=== PATIENT | male | born 1935 | race Caucasian/White ===

== ENCOUNTER 2023-11-14 15:00 | Inpatient (IN) | payer MEDICARE, SELFPAY ==
[2023-11-14] VITALS (41 sets, daily range): BP systolic 99–128; BP diastolic 52–89; PULSE 94–110; RESP 20–41; TEMP 36.9–37; O2SAT 91–96; BMI 25.7; BMI 42.3
--- NOTE | 2023-11-14 15:04 | ECG_ITS ---
The [facility] Test Date: 2023-11-14 Pat Name: KALINA NOWAK Department: Room: - Gender: Male General Technician: : 1935 Requested By: Order Number: [id number] Reading MD: DONNA CABELLO Measurements Intervals [place] Rate: 105 P: 30 PA: 108 QRS: -9 QRSD: 92 T: -1 QT: 324 QTc: 385 Interpretive Statements 1120 Sinus tachycardia [address]/T wave changes, can't exclude lateral ischemia 5233 Voltage criteria for LVH 9150 abnormal ECG No previous ECG available for comparison Electronically Signed On 11-14-2023 20:20:03 EST by DONNA CABELLO
--- NOTE | 2023-11-14 15:04 | XR_ITS ---
The [address] [address] Patient Name: KALINA NOWAK MRN: [id number] date: 1935 Sex: M Assigned Patient Location: ED.MAIN Current Patient Location: ED.MAIN Accession/Order Number: [id number] Exam Date: 11/14/2023 15:30 Report Date: 11/14/2023 15:50 At the request of: MARYSE LARSEN Procedure: XR chest 1V EXAM: XR chest 1V HISTORY: Weakness COMPARISON: None. TECHNIQUE: Chest X-ray AP, 1 view FINDINGS: Support devices: None. Lungs/pleura: No pneumothorax. Retrocardiac opacity and left costophrenic angle blunting, likely representing small left pleural effusion and left lower lobe atelectasis and/or pneumonia. Heart and mediastinum: Normal contours. Bones: No acute abnormality identified. XR/XR chest 1V Impression: small left pleural effusion and left lower lobe atelectasis and/or pneumonia. Electronically authenticated by: BRETT GUIDO Date: 11/14/2023 15:50
--- NOTE | 2023-11-14 15:05 | CT_ITS ---
The [address] [address] Patient Name: KALINA NOWAK MRN: [id number] date: 1935 Sex: M Assigned Patient Location: ER Current Patient Location: ER Accession/Order Number: [id number] Exam Date: 11/14/2023 16:08 Report Date: 11/14/2023 16:33 At the request of: MARYSE LARSEN Procedure: CT head/brain wo con EXAM: CT head/brain wo con HISTORY: Weakness, alteredf COMPARISON: None. TECHNIQUE: Axial CT images were obtained of the head without intravenous contrast. Multiplanar reconstructions were performed. FINDINGS: No acute intracranial hemorrhage. No acute loss of sinclair/white differentiation. 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 The ventricles and sulci are normal in appearance. The osseous structures are unremarkable. A soft tissue abnormality is present at the left apical scalp region, possibly representing an ulcerated lesion. The paranasal sinuses are clear. There is an effusion in the right mastoid air cells. CT/CT head/brain wo con IMPRESSION: 1. No acute intracranial abnormality. 2. 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 3. Soft tissue abnormality present at the left apical scalp region, possibly representing an ulcerated lesion or laceration. Clinical correlation is necessary. 4. Right mastoid effusion. Electronically authenticated by: BRITTANIE CHRISTINE Date: 11/14/2023 16:33
--- NOTE | 2023-11-14 15:06 | ED_ITS ---
HPI - General Adult General Chief complaint: Altered Mental Status Stated complaint: WEAKNESS Time Seen by Provider: 11/14/23 15:04 History of Present Illness HPI narrative: Patient is an 88-year-old male who presents to the emergency department by ambulance for weakness and altered mental status over the last several days. Patient apparently lives at home alone and his children checked on him and called 911 as he seemed confused. Patient arrives to the emergency department ANO x 1. EMS noted a fever. History is otherwise limited as the patient is confused and hard of hearing. He denies any pain, he denies that he has been sick or had any cough or congestion. Patient denies any vomiting. He is noted to have a large eroded lesion to the top left scalp which EMS states family reported is a birthmark . Related Data Allergies Allergy/AdvReac Type Severity Reaction Status Date / Time Unable to Assess Allergy Verified 11/14/23 15:18 Review of Systems ROS Constitutional Denies: fever or chills Ears, nose, mouth, and throat Denies: throat pain or nasal congestion Cardiovascular Denies: chest pain Respiratory Denies: shortness of breath or cough Gastrointestinal Denies: nausea or vomiting Musculoskeletal Denies: back pain Integumentary/Breast Denies: rash Neurological Denies: headache Hematologic/Lymphatic Denies: easy bruising or easy bleeding Exam Narrative Exam Narrative: Gen.: Awake, alert, in no distress Head: Normocephalic, atraumatic; 5 cm eroded lesion noted to the left parietal scalp that extends into the dermis with no active bleeding or drainage, Edges of the lesion appear black and necrotic ENT: Moist mucous membranes Respiratory: No respiratory distress, lungs clear bilaterally Cardio: Regular rate and rhythm Gastrointestinal: Abdomen is soft, nondistended and nontender to palpation Extremities: Moves extremities equally, no injuries noted Psych: Normal mood and affect Neuro:Alert and oriented To self Skin: Warm, dry, intact Constitutional Vital Signs, click to edit/add: Last Vital Signs Temp 98.5 F 11/14/23 15:11 Pulse 96 H 11/14/23 18:10 Resp 24 11/14/23 15:11 BP 127/52 11/14/23 18:01 Pulse Ox 96 11/14/23 16:30 O2 Del Method Room Air 11/14/23 15:11 O2 Flow Rate 2 11/14/23 15:10 Course Vital Signs Vital signs: Vital Signs Pulse Rate 103 H 11/14/23 15:06 Respiratory Rate 39 H 11/14/23 15:06 Temperature 98.5 F 11/14/23 15:11 Pulse Rate 96 H 11/14/23 18:10 Respiratory Rate 24 11/14/23 15:11 Blood Pressure 127/52 11/14/23 18:01 Pulse Oximetry 96 11/14/23 16:30 Oxygen Delivery Method Room Air 11/14/23 15:11 Oxygen Delivery Flow Rate 2 11/14/23 15:10 Medical Decision Making MDM Narrative Medical decision making narrative: No evidence of wound infection to the lesion on the scalp, family is confident that this has been like this for many years and is not different or worse, I do suspect that this may be a basal versus squamous cell versus melanoma and may need a biopsy later. There is no evidence of acute infection. Patient is alert and oriented to self, he rested comfortably in the emergency department with stable vital signs. He has no EKG changes, he is noted to have elevated white blood cell count, mild renal insufficiency, elevated lactic acid and elevated troponin. Repeat elevated troponin is stable and lactic acid has improved after IV fluids. I discussed this with Dr. Sanchez for [facility] cardiology Who stated that the patient is appropriate for this facility, he will be treated for community-acquired pneumonia with azithromycin, Rocephin and admitted to this facility to hospitalist service for further evaluation and treatment. Stable at time of admission on reevaluation by attending physician. Family at bedside is in agreement with treatment plan Medical Records Medical records reviewed: Yes I reviewed the patient's medical records Lab Data Lab results reviewed: Yes I reviewed the patient's lab results Labs: Lab Results 11/14/23 11/14/23 11/14/23 Range/Units 15:07 15:18 15:46 WBC 18.4 H (4.0-11.0) 10^3/uL RBC 5.63 (4.70-6.10) 10^6/uL Hgb 14.7 (14.0-18.0) g/dL Hct 46.2 (42.0-54.0) % MCV 82.1 (80.0-94.0) fL MCH 26.1 (25.9-34.0) pg MCHC 31.8 (29.9-35.2) g/dL RDW 15.7 H (11.0-15.0) % Plt Count 219 (150-450) 10^3/uL MPV 11.4 (9.5-13.5) fL Neut % (Auto) 87.7 H (43.0-75.0) % Lymph % (Auto) 5.3 L (20.5-60.0) % Schleicher % (Auto) 6.1 (1.7-12.0) % Eos % (Auto) 0.0 L (0.9-7.0) % Baso % (Auto) 0.2 (0.2-2.0) % Neut # (Auto) 16.2 H (1.4-6.5) 10^3/uL Lymph # (Auto) 1.0 L (1.2-3.8) 10^3/uL Schleicher # (Auto) 1.1 H (0.3-0.8) 10^3/uL Eos # (Auto) 0.0 (0.0-0.7) 10^3/uL Baso # (Auto) 0.0 (0.0-0.1) 10^3/uL Abs Immat Gran (auto) 0.12 H (0.00-0.03) 10^3/uL Imm/Tot Granulo (auto) 0.7 H (0.0-0.5) % PT 12.1 H (9.0-11.6) sec INR 1.15 VBG pH 7.422 (7.330-7.430) VBG pCO2 27.5 L (40.0-52.0) mmHg Sodium 139 (136-145) mmol/L Potassium 4.0 (3.5-5.1) mmol/L Chloride 104 (98-107) mmol/L Carbon Dioxide 19.9 L (21.0-32.0) mmol/L Anion Gap 19.1 BUN 35.0 H (7.0-18.0) mg/dL Creatinine 1.65 H (0.70-1.30) mg/dL Est GFR ( Amer) 48 L (>=60) Est GFR (Non-Af Amer) 40 L (>=60) BUN/Creatinine Ratio 21.2 Glucose 238 H (74-106) mg/dL Lactate 2.8 H* (0.4-2.0) mmol/L Calcium 9.2 (8.5-10.1) mg/dL Magnesium 2.0 (1.8-2.4) mg/dL Total Bilirubin 0.8 (0.2-1.0) mg/dL AST 28 (15-37) U/L ALT 27 (16-63) U/L Alkaline Phosphatase 78 (46-116) U/L Troponin I High Sens 229.5 H* (4.0-76.1) pg/mL Total Protein 8.2 (6.4-8.2) g/dL Albumin 3.3 L (3.4-5.0) g/dL Globulin 4.9 g/dL Albumin/Globulin Ratio 0.7 TSH 0.888 (0.358-3.740) uIU/mL Urine Color (YELLOW) Urine Clarity (CLEAR) Urine pH (5.0-9.0) Ur Specific [place] (1.005-1.025) Urine Protein (NEG/TRACE) mg/dL Urine Glucose (UA) (NEGATIVE) mg/dL Urine Ketones (NEGATIVE) mg/dL Urine Occult Blood (NEGATIVE) Urine Nitrite (NEGATIVE) Urine Bilirubin (NEGATIVE) Urine Urobilinogen (0.2-1.0) EU/dL Ur Leukocyte Esterase (NEGATIVE) Urine RBC (0-2) #/HPF Urine WBC (NONE SEEN) #/HPF Ur Squamous Epith Cells (NONE/RARE) #/LPF Urine Crystals (None Seen) #/HPF Urine Bacteria (NONE SEEN) #/HPF Urine Casts (NONE SEEN) #/LPF Hyaline Casts Urine Mucus (NONE SEEN) Ur Culture Indicated? Adenovirus (PCR) Not detected (NOT DETECTE) C. pneumoniae DNA (PCR) Not detected (NOT DETECTE) Coronavirus Type OC43 Not detected (NOT DETECTE) Coronavirus Type HKU1 Not detected (NOT DETECTE) Coronavirus Type 229E Not detected (NOT DETECTE) Coronavirus Type NL63 Not detected (NOT DETECTE) Human Metapneumovir PCR Not detected (NOT DETECTE) M. pneumoniae (PCR) Not detected (NOT DETECTE) Parainfluenza PCR Not detected (NOT DETECTE) Parainfluenza 2 (PCR) Not detected (NOT DETECTE) Parainfluenza 3 (PCR) Not detected (NOT DETECTE) Parainfluenza 4 (PCR) Not detected (NOT DETECTE) RSV (RT-PCR) Not detected (NOT DETECTE) Entero/Rhino (PCR) Not detected (NOT DETECTE) SARS-CoV-2 (PCR) Not detected (NOT DETECTE) Bordetella pertussis (PCR) Not detected (NOT DETECTE) B parapertussis DNA PCR Not detected (NOT DETECTE) Influenza Type A (PCR) Not detected (NOT DETECTE) Influenza Type B (PCR) Not detected (NOT DETECTE) 11/14/23 11/14/23 Range/Units 16:46 16:50 WBC (4.0-11.0) 10^3/uL RBC (4.70-6.10) 10^6/uL Hgb (14.0-18.0) g/dL Hct (42.0-54.0) % MCV (80.0-94.0) fL MCH (25.9-34.0) pg MCHC (29.9-35.2) g/dL RDW (11.0-15.0) % Plt Count (150-450) 10^3/uL MPV (9.5-13.5) fL Neut % (Auto) (43.0-75.0) % Lymph % (Auto) (20.5-60.0) % Schleicher % (Auto) (1.7-12.0) % Eos % (Auto) (0.9-7.0) % Baso % (Auto) (0.2-2.0) % Neut # (Auto) (1.4-6.5) 10^3/uL Lymph # (Auto) (1.2-3.8) 10^3/uL Schleicher # (Auto) (0.3-0.8) 10^3/uL Eos # (Auto) (0.0-0.7) 10^3/uL Baso # (Auto) (0.0-0.1) 10^3/uL Abs Immat Gran (auto) (0.00-0.03) 10^3/uL Imm/Tot Granulo (auto) (0.0-0.5) % PT (9.0-11.6) sec INR VBG pH (7.330-7.430) VBG pCO2 (40.0-52.0) mmHg Sodium (136-145) mmol/L Potassium (3.5-5.1) mmol/L Chloride (98-107) mmol/L Carbon Dioxide (21.0-32.0) mmol/L Anion Gap BUN (7.0-18.0) mg/dL Creatinine (0.70-1.30) mg/dL Est GFR ( Amer) (>=60) Est GFR (Non-Af Amer) (>=60) BUN/Creatinine Ratio Glucose (74-106) mg/dL Lactate 2.5 H* (0.4-2.0) mmol/L Calcium (8.5-10.1) mg/dL Magnesium (1.8-2.4) mg/dL Total Bilirubin (0.2-1.0) mg/dL AST (15-37) U/L ALT (16-63) U/L Alkaline Phosphatase (46-116) U/L Troponin I High Sens 232.1 H* (4.0-76.1) pg/mL Total Protein (6.4-8.2) g/dL Albumin (3.4-5.0) g/dL Globulin g/dL Albumin/Globulin Ratio TSH (0.358-3.740) uIU/mL Urine Color Yellow (YELLOW) Urine Clarity Clear (CLEAR) Urine pH 5.5 (5.0-9.0) Ur Specific [place] 1.020 (1.005-1.025) Urine Protein 30 A (NEG/TRACE) mg/dL Urine Glucose (UA) >=1000 A (NEGATIVE) mg/dL Urine Ketones 15 A (NEGATIVE) mg/dL Urine Occult Blood Small A (NEGATIVE) Urine Nitrite Negative (NEGATIVE) Urine Bilirubin Negative (NEGATIVE) Urine Urobilinogen 0.2 (0.2-1.0) EU/dL Ur Leukocyte Esterase Negative (NEGATIVE) Urine RBC 2-5 A (0-2) #/HPF Urine WBC 0-2 A (NONE SEEN) #/HPF Ur Squamous Epith Cells Rare (NONE/RARE) #/LPF Urine Crystals None seen (None Seen) #/HPF Urine Bacteria Trace A (NONE SEEN) #/HPF Urine Casts Seen A (NONE SEEN) #/LPF Hyaline Casts Rare Urine Mucus Trace A (NONE SEEN) Ur Culture Indicated? No Adenovirus (PCR) (NOT DETECTE) C. pneumoniae DNA (PCR) (NOT DETECTE) Coronavirus Type OC43 (NOT DETECTE) Coronavirus Type HKU1 (NOT DETECTE) Coronavirus Type 229E (NOT DETECTE) Coronavirus Type NL63 (NOT DETECTE) Human Metapneumovir PCR (NOT DETECTE) M. pneumoniae (PCR) (NOT DETECTE) Parainfluenza PCR (NOT DETECTE) Parainfluenza 2 (PCR) (NOT DETECTE) Parainfluenza 3 (PCR) (NOT DETECTE) Parainfluenza 4 (PCR) (NOT DETECTE) RSV (RT-PCR) (NOT DETECTE) Entero/Rhino (PCR) (NOT DETECTE) SARS-CoV-2 (PCR) (NOT DETECTE) Bordetella pertussis (PCR) (NOT DETECTE) B parapertussis DNA PCR (NOT DETECTE) Influenza Type A (PCR) (NOT DETECTE) Influenza Type B (PCR) (NOT DETECTE) Imaging Data Chest x-ray: Attestation: I have reviewed the pertinent imaging results. Radiologist's impression: ITS Impressions Chest X-Ray 11/14/23 15:04 Impression: small left pleural effusion and left lower lobe atelectasis and/or pneumonia. Electronically authenticated by: BRETT GUIDO Date: 11/14/2023 15:[address] 11/14/23 15:05 IMPRESSION: 1. No acute intracranial abnormality. 2. 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 3. Soft tissue abnormality present at the left apical scalp region, possibly representing an ulcerated lesion or laceration. Clinical correlation is necessary. 4. Right mastoid effusion. Electronically authenticated by: BRITTANIE CHRISTINE Date: 11/14/2023 16:33 ECG Data Attestation: I personally reviewed and interpreted this ECG as follows: (Sinus tachycardia at a rate of 105, no acute ST elevation. Mild to moderate ST depression with no ectopy. EKG reviewed by attending physician) Discharge Plan Discharge Chief Complaint: Altered Mental Status Clinical Impression: Elevated troponin, Sepsis, Altered mental status, Pneumonia Time of Disposition Decision: 18:41
[2023-11-14 15:20] LABS: Basophils Percent Auto 0.2 % (0.2-2.0); Hematocrit 46.2 % (42.0-54.0); Hemoglobin 14.7 g/dL (14.0-18.0); Immature Granulocytes Abs Auto 0.12 10^3/uL (0.00-0.03); Immature Granulocytes Pct Auto 0.7 % (0.0-0.5); Lymphocytes Percent Auto 5.3 % (20.5-60.0); Mean Corpuscular HGB Conc 31.8 g/dL (29.9-35.2); Mean Corpuscular Hemoglobin 26.1 pg (25.9-34.0); Mean Corpuscular Volume 82.1 fL (80.0-94.0); Mean Platelet Volume 11.4 fL (9.5-13.5); Monocytes Absolute Auto 1.1 10^3/uL (0.3-0.8); Monocytes Percent Auto 6.1 % (1.7-12.0); Neutrophils Absolute Auto 16.2 10^3/uL (1.4-6.5); Neutrophils Percent Auto 87.7 % (43.0-75.0); Platelet Count 219 10^3/uL (150-450); Red Blood Count 5.63 10^6/uL (4.70-6.10); Red Cell Distribution Width 15.7 % (11.0-15.0); White Blood Count 18.4 10^3/uL (4.0-11.0)
[2023-11-14] MEDS: 0.9 % SODIUM CHLORIDE 1,000 ML 1000 ML IV (15:34)
[2023-11-14 15:35] LABS: Adenovirus NOT DETECTED (NOT DETECTE); Bordetella parapertussis NOT DETECTED (NOT DETECTE); Coronavirus 229E NOT DETECTED (NOT DETECTE); Coronavirus HKU1 NOT DETECTED (NOT DETECTE); Coronavirus NL63 NOT DETECTED (NOT DETECTE); Coronavirus OC43 NOT DETECTED (NOT DETECTE); Human Metapneumovirus NOT DETECTED (NOT DETECTE); Human Rhinovirus/Enterovirus NOT DETECTED (NOT DETECTE); Influenza A NOT DETECTED (NOT DETECTE); Influenza B NOT DETECTED (NOT DETECTE); Mycoplasma pneumoniae NOT DETECTED (NOT DETECTE); Parainfluenza Virus 1 NOT DETECTED (NOT DETECTE); Parainfluenza Virus 2 NOT DETECTED (NOT DETECTE); Parainfluenza Virus 3 NOT DETECTED (NOT DETECTE); Parainfluenza Virus 4 NOT DETECTED (NOT DETECTE); Respiratory Syncytial Virus NOT DETECTED (NOT DETECTE); SARS-CoV-2 NOT DETECTED (NOT DETECTE)
[2023-11-14 15:44] LABS: PCO2 VBG 27.5 mmHg (40.0-52.0); pH VBG 7.422 (7.330-7.430)
[2023-11-14 15:49] LABS: Alanine Aminotransferase 27 U/L (16-63); Albumin Globulin Ratio 0.7; Albumin Level 3.3 g/dL (3.4-5.0); Alkaline Phosphatase 78 U/L (46-116); Anion Gap 19.1; Aspartate Amino Transferase 28 U/L (15-37); BUN Creatinine Ratio 21.2; Bilirubin Total 0.8 mg/dL (0.2-1.0); Calcium 9.2 mg/dL (8.5-10.1); Carbon Dioxide 19.9 mmol/L (21.0-32.0); Chloride 104 mmol/L (98-107); Estimated GFR (African America 48 (>=60); Estimated GFR (Non-African Ame 40 (>=60); Globulin 4.9 g/dL; Glucose 238 mg/dL (74-106); Sodium 139 mmol/L (136-145); Thyroid Stimulating Hormone 0.888 uIU/mL (0.358-3.740); Total Protein 8.2 g/dL (6.4-8.2)
[2023-11-14 15:51] LABS: Lactate/Lactic Acid 2.8 mmol/L (0.4-2.0); Troponin I High Sensitivity 229.5 pg/mL (4.0-76.1)
[2023-11-14 16:11] LABS: INR 1.15; Prothrombin Time 12.1 sec (9.0-11.6)
[2023-11-14 16:58] LABS: Bilirubin Urine NEGATIVE (NEGATIVE); Blood Urine SMALL (NEGATIVE); Clarity Urine CLEAR (CLEAR); Color Urine YELLOW (YELLOW); Glucose Urine UA >=1000 mg/dL (NEGATIVE); Ketones Urine 15 mg/dL (NEGATIVE); Leukocyte Esterase Urine NEGATIVE (NEGATIVE); Nitrite Urine NEGATIVE (NEGATIVE); Protein Urine 30 mg/dL (NEG/TRACE); Urobilinogen Urine 0.2 EU/dL (0.2-1.0); pH Urine 5.5 (5.0-9.0)
[2023-11-14 16:59] LABS: Urine Microscopic Indicated YES
[2023-11-14 17:09] LABS: Bacteria Urine TRACE #/HPF (NONE SEEN); Crystals Seen? None Seen #/HPF (None Seen); Mucus Urine TRACE (NONE SEEN); Squamous Epithelial Cell Urine RARE #/LPF (NONE/RARE); WBC Urine 0-2 #/HPF (NONE SEEN)
[2023-11-14 17:10] LABS: Cast Seen? SEEN #/LPF (NONE SEEN); Hyaline Casts Urine RARE; Urine Culture Indicated NO
[2023-11-14 17:16] LABS: Troponin I High Sensitivity 232.1 pg/mL (4.0-76.1)
[2023-11-14 17:24] LABS: Lactate/Lactic Acid 2.5 mmol/L (0.4-2.0)
[2023-11-14] MEDS: CEFTRIAXONE 1,000 MG in 0.9 % SODIUM CHLORIDE 50 ML 100 MG IV (18:05)
[2023-11-14] MEDS: AZITHROMYCIN 500 MG in 0.9 % SODIUM CHLORIDE 250 ML 250 MG IV (18:39)
[2023-11-14 20:54] LABS: Lactate/Lactic Acid 3.1 mmol/L (0.4-2.0)
[2023-11-14] MEDS: 0.9 % SODIUM CHLORIDE 1,000 ML 100 ML IV (22:14)
[2023-11-14 23:51] LABS: Lactate/Lactic Acid 1.8 mmol/L (0.4-2.0)
[2023-11-15] VITALS (20 sets, daily range): BP systolic 95–102; BP diastolic 61–65; PULSE 76–102; RESP 12–28; TEMP 36.4–36.9; O2SAT 86–107
[2023-11-15 01:09] LABS: A. calcoaceticus-baumannii Cpx NOT DETECTED (NOT DETECTE); Bacteroides fragilis NOT DETECTED (NOT DETECTE); Candida albicans NOT DETECTED (NOT DETECTE); Candida auris NOT DETECTED (NOT DETECTE); Candida glabrata NOT DETECTED (NOT DETECTE); Candida krusei NOT DETECTED (NOT DETECTE); Candida parapsilosis NOT DETECTED (NOT DETECTE); Candida tropicalis NOT DETECTED (NOT DETECTE); Cryptococcus neoformans/gattii NOT DETECTED (NOT DETECTE); Enterobacter cloacae complex NOT DETECTED (NOT DETECTE); Enterobacterales NOT DETECTED (NOT DETECTE); Enterococcus faecalis NOT DETECTED (NOT DETECTE); Enterococcus faecium NOT DETECTED (NOT DETECTE); Haemophilus influenzae NOT DETECTED (NOT DETECTE); Klebsiella aerogenes NOT DETECTED (NOT DETECTE); Klebsiella pneumoniae group NOT DETECTED (NOT DETECTE); Listeria monocytogenes NOT DETECTED (NOT DETECTE); Neisseria meningitidis NOT DETECTED (NOT DETECTE); Proteus spp. NOT DETECTED (NOT DETECTE); Pseudomonas aeruginosa NOT DETECTED (NOT DETECTE); Salmonella spp. NOT DETECTED (NOT DETECTE); Serratia marcescens NOT DETECTED (NOT DETECTE); Staphylococcus epidermidis NOT DETECTED (NOT DETECTE); Staphylococcus lugdunensis NOT DETECTED (NOT DETECTE); Stenotrophomonas maltophilia NOT DETECTED (NOT DETECTE); Streptococcus agalactiae NOT DETECTED (NOT DETECTE); Streptococcus pneumoniae NOT DETECTED (NOT DETECTE); Streptococcus pyogenes NOT DETECTED (NOT DETECTE); Streptococcus spp. NOT DETECTED (NOT DETECTE)
[2023-11-15 02:21] LABS: mecA/C and MREJ (MRSA) NOT DETECTED (NOT DETECTE)
[2023-11-15 02:23] LABS: Staphylococcus spp. DETECTED (NOT DETECTE)
[2023-11-15 02:24] LABS: Source Blood
--- NOTE | 2023-11-15 04:00 | ECG_ITS ---
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
[2023-11-15 04:35] LABS: Basophils Percent Auto 0.2 % (0.2-2.0); Hematocrit 39.4 % (42.0-54.0); Hemoglobin 12.3 g/dL (14.0-18.0); Immature Granulocytes Abs Auto 0.11 10^3/uL (0.00-0.03); Immature Granulocytes Pct Auto 0.7 % (0.0-0.5); Lymphocytes Absolute Auto 1.4 10^3/uL (1.2-3.8); Lymphocytes Percent Auto 8.3 % (20.5-60.0); Mean Corpuscular HGB Conc 31.2 g/dL (29.9-35.2); Mean Corpuscular Hemoglobin 25.9 pg (25.9-34.0); Mean Corpuscular Volume 82.9 fL (80.0-94.0); Mean Platelet Volume 11.4 fL (9.5-13.5); Monocytes Absolute Auto 1.5 10^3/uL (0.3-0.8); Neutrophils Absolute Auto 13.4 10^3/uL (1.4-6.5); Neutrophils Percent Auto 81.8 % (43.0-75.0); Platelet Count 190 10^3/uL (150-450); Red Blood Count 4.75 10^6/uL (4.70-6.10); Red Cell Distribution Width 15.9 % (11.0-15.0); White Blood Count 16.4 10^3/uL (4.0-11.0)
[2023-11-15 04:50] LABS: Alanine Aminotransferase 33 U/L (16-63); Albumin Globulin Ratio 0.6; Albumin Level 2.6 g/dL (3.4-5.0); Alkaline Phosphatase 62 U/L (46-116); Anion Gap 16.7; Aspartate Amino Transferase 57 U/L (15-37); BUN Creatinine Ratio 23.3; Bilirubin Total 0.4 mg/dL (0.2-1.0); Calcium 8.4 mg/dL (8.5-10.1); Carbon Dioxide 21.1 mmol/L (21.0-32.0); Chloride 109 mmol/L (98-107); Estimated GFR (African America 41 (>=60); Estimated GFR (Non-African Ame 34 (>=60); Globulin 4.3 g/dL; Glucose 238 mg/dL (74-106); Potassium 3.8 mmol/L (3.5-5.1); Sodium 143 mmol/L (136-145); Total Protein 6.9 g/dL (6.4-8.2)
--- NOTE | 2023-11-15 06:01 | CA_ITS ---
Patient Name: KALINA NOWAK MR#: [id number] : 1935 Exam Date: 11/15/2023 Ordering Doctor: DR Keo Bullock . ECHOCARDIOGRAM REPORT PROCEDURE: CA ECHO DOPPLER COMPLETE INDICATIONS: Elevated TROP - BNP, diabetes COMPARISON: None. DESCRIPTION: COMPLETE ECHOCARDIOGRAM Real-time transthoracic echocardiography with 2D, M-mode, spectral and color flow Doppler performed. QUALITY: Technical quality was good. LEFT VENTRICLE: Normal chamber size. Mild concentric left ventricular hypertrophy. LV EF: Global left ventricular systolic function is mild to moderately reduced; estimated ejection fraction is 35-40%. Calculated left ventricular ejection fraction is 33%. Diffuse hypokinesis. DIASTOLIC: Grade II diastolic dysfunction. ATRIAL SEPTUM: Visually appears intact. LEFT ATRIUM: Severe dilatation. RIGHT ATRIUM: Moderate dilatation. RIGHT VENTRICLE: Normal chamber size. Normal right ventricular systolic function. TRICUSPID VALVE: Normal mobility and thickness. Mild regurgitation. Moderately elevated right ventricular systolic pressure; RVSP is 52 mmHg. MITRAL VALVE: Mildly thickened with normal mobility. Mild mitral annular calcification. Moderate to severe mitral regurgitation. AORTIC VALVE: Normal trileaflet appearance. Severely calcified aortic valve. Severely diminished mobility. Doppler velocity suggests severe aortic valve stenosis. DVI 0.2, MILLIE 0.8 cm2. No aortic regurgitation. AORTIC ROOT: Normal diameter and appearance. PULMONIC VALVE: Normal thickness and mobility. No stenosis. Trivial regurgitation. PERICARDIUM: No evidence of pericardial effusion. IVC: Collapses with inspirations. IVC is normal in size. CONCLUSION: 1. Global left ventricular systolic function is mild to moderately reduced; visually estimated ejection fraction is 35 to 40% 2. Right ventricle is normal in size and systolic function 3. Grade 2 diastolic dysfunction 4. Biatrial enlargement 5. Mild tricuspid regurgitation 6. Moderately elevated right ventricular systolic pressure; RVSP is 52 mmHg 7. Moderate to severe mitral regurgitation 8. Severe aortic valve stenosis; DVI 0.2 Adult Echocardiography Procedure Report Left Ventricle LVEDD (3.7 - 5.6 cm): 5.46 cm LVESD (2.2 - 4.0 cm): 3.94 cm LVIVS thickness (0.6 - 1.2 cm): 1.40 cm LVPW thickness (0.5 - 1.0 cm): 1.18 cm e': 0.09 m/s E - e': 13.09 LVOT Max Gradient: 2.25 mm[Hg] LVOT Area (cm2): 0.75 m/s Peak Velocity (LVOT): 0.75 m/s Mean Velocity (LVOT): 0.56 m/s LVOT Diameter 2.28 cm Left Atrium LA Volume Index (2D A2C): 49.03 ml/m2 Left Atrium Systolic Dimension: 5.42 cm Mitral Valve MV E to A Ratio: 1.30 Mitral Valve A-Wave Peak Velocity: 0.90 m/s Mitral Valve E-Wave Peak Velocity: 1.17 m/s Right Ventricle Aorta AO Root Diam: 3.46 cm Ascending Ao Diam: 3.48 cm Aortic Valve AoV Area (Peak Ned): 0.80 cm2, 0.84 cm2 AoV Area (VTI): 0.75 cm2, 0.82 cm2 Peak Velocity(Antegrade Flow): 3.65 m/s, 3.82 m/s, 3.82 m/s Peak Gradient(Antegrade Flow): 53.40 mm[Hg], 58.44 mm[Hg], 58.44 mm[Hg] Mean Velocity(Antegrade Flow): 2.85 m/s, 2.81 m/s, 2.60 m/s Mean Gradient(Antegrade Flow): 35.23 mm[Hg], 35.91 mm[Hg], 32.59 mm[Hg] Velocity Time Integral: 83.57 cm, 84.52 cm, 91.16 cm Tricuspid Valve Peak Velocity (Regurgitant Flow): 3.48 m/s Pulmonic Valve Peak Gradient: 4.51 mm[Hg], 2.95 mm[Hg] Right Atrium Right Atrium Systolic Pressure: 71.68 ml, 71.68 ml Dictated by: Ronnie Saldaña M.D. on 11/15/2023 at 11:25 Approved by: Ronnie Saldaña M.D. on 11/15/2023 at 11:32
[2023-11-15] MEDS: PIPERACILLIN SODIUM/TAZOBACTAM 3.375 GM in 0.9 % SODIUM CHLORIDE 50 ML IV ×3 (06:49→21:17)
[2023-11-15] MEDS: PANTOPRAZOLE SODIUM 40 MG VIAL IV (06:50)
[2023-11-15 06:58] LABS: Magnesium 2.1 mg/dL (1.8-2.4)
[2023-11-15 07:03] LABS: Troponin I High Sensitivity 397.7 pg/mL (4.0-76.1)
[2023-11-15 08:08] LABS: Glucometer 221 mg/dL (74-106)
[2023-11-15] MEDS: ENOXAPARIN SODIUM 40 MG/0.4 ML SYRINGE SUBQ (08:16)
[2023-11-15] MEDS: LINEZOLID IN DEXTROSE 5% 600 MG/300 ML PIGGYBACK 300 MG IV ×2 (08:17→20:15)
--- NOTE | 2023-11-15 09:12 | P.HP_ITS ---
H&P: HPI History of Present Illness Chief complaint: WEAKNESS Altered mental status pneumonia sepsis Narrative: Patient presented to the emergency room with increasing weakness and altered mental status. Found to have elevated troponins, discussed with cardiology and did not recommend transfer, but also lactic acidosis with left lower lobe pneumonia. Patient admitted to ICU Review of Systems ROS Status of ROS 10 or more systems reviewed and unremark able except as noted in history and below [facility] Medical History (Updated 11/15/23 @ 02:55 by Kylie Barrios RN) Elevated cholesterol ?E78.00 - Pure hypercholesterolemia, unspecified (ICD-10) Diabetes ?E11.9 - Type 2 diabetes mellitus without complications (ICD-10) Social History Highest level of school completed/degree received: 12th grade, no diploma Meds Home Medications and Allergies Home Medications Medication Instructions Recorded Confirmed Type empagliflozin 10 mg tablet 10 mg PO DAILY 11/15/23 11/15/23 History (Jardiance) glipizide 5 mg tablet 5 mg PO DAILY 11/15/23 11/15/23 History metformin 1,000 mg tablet 1,000 mg PO DAILY 11/15/23 11/15/23 History rosuvastatin 20 mg tablet 20 mg PO DAILY 11/15/23 11/15/23 History Allergies Allergy/AdvReac Type Severity Reaction Status Date / Time Unable to Assess Allergy Verified 11/15/23 06:57 Exam Constitutional Vital Signs, click to edit/add: Last Vital Signs Temp 98.5 F 11/15/23 03:10 Pulse 85 11/15/23 08:00 Resp 28 H 11/15/23 04:00 BP 95/62 11/15/23 03:10 Pulse Ox 93 L 11/15/23 06:00 O2 Del Method Nasal Cannula 11/15/23 05:29 O2 Flow Rate 2 11/15/23 05:29 Documenting provider has reviewed patient's vital signs: yes Common normals: no apparent distress (Not confused this morning, may likely change at at bedtime) Chest Common normals: inspection of chest normal Respiratory Common normals: normal respiratory effort and no retractions Auscultation: rhonchi, wheezes and egophony (Left lower lobe) left lower Cardio Common normals: regular rhythm; irregular rate and murmurs detected Rate: tachycardic Heart sounds: murmur (4/6 systolic ejection murmur) GI Common normals: Normal to inspection, nondistended, normoactive bowel sounds present Neuro Common normals: oriented x3, CN's II-XII intact bilaterally and moves all extremities Results Labs Labs: Short CBC 11/14/23 11/15/23 Range/Units 15:07 04:09 WBC 18.4 H 16.4 H (4.0-11.0) 10^3/uL Hgb 14.7 12.3 L (14.0-18.0) g/dL Hct 46.2 39.4 L (42.0-54.0) % Plt Count 219 190 (150-450) 10^3/uL BMP 11/14/23 11/15/23 15:07 04:09 Sodium 139 143 Potassium 4.0 3.8 Chloride 104 109 H Carbon Dioxide 19.9 L 21.1 BUN 35.0 H 44.0 H Creatinine 1.65 H 1.89 H Glucose 238 H 238 H Calcium 9.2 8.4 L Liver Function 11/14/23 11/15/23 Range/Units 15:07 04:09 Total Bilirubin 0.8 0.4 (0.2-1.0) mg/dL AST 28 57 H (15-37) U/L ALT 27 33 (16-63) U/L Alkaline Phosphatase 78 62 (46-116) U/L Albumin 3.3 L 2.6 L (3.4-5.0) g/dL Urine 11/14/23 Range/Units 16:46 Urine Color Yellow (YELLOW) Urine Clarity Clear (CLEAR) Urine pH 5.5 (5.0-9.0) Ur Specific [place] 1.020 (1.005-1.025) Urine Protein 30 A (NEG/TRACE) mg/dL Urine Glucose (UA) >=1000 A (NEGATIVE) mg/dL ABG ABG results: 11/14/23 15:07 VBG pH 7.422 VBG pCO2 27.5 L Assessment and Plan Assessment and Plan (1) Pneumonia: (2) Altered mental status: Plan Sinus tachycardia, respiratory distress, leukocytosis, lactic soft cough cough cough secondary to left lower lobe pneumonia resulting in severe sepsis without shock due to Staph aureus. IV antibiotics, aerosol treatments, try to obtain sputum culture, blood culture possible positive for Staph aureus. Sensitivities were back in 48 hours Elevated troponin-continue to follow, with age and activity of cardiac cath, likely demand ischemia from the above, BNP also elevated today, will saline lock-check echocardiogram Left pleural effusion-repeat chest x-ray later on to follow Iron deficiency anemia-follow daily, check occult blood Mild systolic ejection murmur-check cardiac NIDDM-insulin sliding scale Due to severity of illness as outlined above-patient will be here at least 2 midnights will keep patient as inpatient status -likely here 2-3 more days Urinary Catheter Management Urinary Catheter Management Straight: Cath placed during this visit: yes Urethral indwelling: No Insertion date: 11/14/23 Insertion time: 16:48
--- NOTE | 2023-11-15 09:25 | CM.NOTE ---
Rounds made with Dr. Bullock, cardiology to consult on pt today and echo ordered. Dr. Bullock will speak with cardiology for further recommendations for pt.
--- NOTE | 2023-11-15 13:28 | P.CN_ITS ---
<Statement entered by DEMETRIUS HINTONCORAZON - 12/06/23 00:21> This documentation has been reviewed and approved. Consult Note: HPI Data of Consult Patient: new to practice Consult date: 11/15/23 Requesting Physician: Keo Bullock MD Primary Care Provider: Non-Staff Physician, Consult Narrative Reason for consult: NSTEMI, New HFrEF Narrative: 88-year-old male who presented to the emergency department by ambulance for weakness and altered mental status over the last several days. Patient lives at home alone and his children checked on him and called 911 as he seemed confused. EMS noted a fever. History was otherwise limited as the patient is confused and hard of hearing. He denied any pain, he denied that he has been sick or had any cough or congestion. Denied any chest pain, SOB orthopnea or fatigue over the past 1-2 weeks. Currently he is up sitting in chair visiting with family. Denied SOB at rest or orthopnea. Denied chest pain and adamantly denied any CP ever. Denied any recent illness or fever. States that typically he is rather active. PMH- DM, HPL PSH- admits remote h/o of cardiac cath- was normal denied any other cardiac surgery or procedures FMH- no early cardiac disease or sudden . Social- former pipe smoker and quit 30 years ago. Denied alcohol or illicit drug use cc:: CC: Keo Bullock MD Review of Systems ROS0 Constitutional Denies: fever, chills or change in weight Cardiovascular Reports: edema and swelling of feet/ankles; Denies: chest pain or palpitations Respiratory Reports: shortness of breath (SOB with exertion, denied orthopnea) [facility] Medical History Elevated cholesterol ?E78.00 - Pure hypercholesterolemia, unspecified (ICD-10) Diabetes ?E11.9 - Type 2 diabetes mellitus without complications (ICD-10) Social History Highest level of school completed/degree received: 12th grade, no diploma Meds Home Medications and Allergies Home Medications Medication Instructions Recorded Confirmed Type empagliflozin 10 mg tablet 10 mg PO DAILY 11/15/23 11/15/23 History (Jardiance) glipizide 5 mg tablet 5 mg PO DAILY 11/15/23 11/15/23 History metformin 1,000 mg tablet 1,000 mg PO DAILY 11/15/23 11/15/23 History rosuvastatin 20 mg tablet 20 mg PO DAILY 11/15/23 11/15/23 History Allergies Allergy/AdvReac Type Severity Reaction Status Date / Time Unable to Assess Allergy Verified 11/15/23 06:57 Exam Constitutional Vital Signs, click to edit/add: Last Vital Signs Temp 98 F 11/15/23 12:00 Pulse 78 11/15/23 12:00 Resp 18 11/15/23 12:00 BP 102/61 11/15/23 12:00 Pulse Ox 96 11/15/23 12:00 O2 Del Method Room Air 11/15/23 12:00 O2 Flow Rate 2 11/15/23 05:29 Common normals: no apparent distress, average body habitus, oriented x3 and well nourished General appearance: cooperative and well kempt Respiratory Common normals: normal respiratory effort, no retractions and no use of accessory muscles Auscultation: diminished lung sounds (Diminished b/L Bases) bilateral Cardio Common normals: no JVD, regular rate, regular rhythm, S1 normal heart sound and S2 normal heart sound Heart sounds: murmur (3/6 RUSQ systolic murmur) systolic Peripheral pulses: radial pulses present, posterior tibial pulses present and dorsalis pedis pulses present Extremity Common normals: normal capillary refill; clubbing, cyanosis or edema (BLE 1-2+ edema) Neuro Common normals: oriented x3 and CN's II-XII intact bilaterally Psych Common normals: mental status grossly normal, thought process normal, cooperative, affect normal and speech normal Results Labs Labs: Short CBC 11/14/23 11/15/23 Range/Units 15:07 04:09 WBC 18.4 H 16.4 H (4.0-11.0) 10^3/uL Hgb 14.7 12.3 L (14.0-18.0) g/dL Hct 46.2 39.4 L (42.0-54.0) % Plt Count 219 190 (150-450) 10^3/uL BMP 11/14/23 11/15/23 15:07 04:09 Sodium 139 143 Potassium 4.0 3.8 Chloride 104 109 H Carbon Dioxide 19.9 L 21.1 BUN 35.0 H 44.0 H Creatinine 1.65 H 1.89 H Glucose 238 H 238 H Calcium 9.2 8.4 L Liver Function 11/14/23 11/15/23 Range/Units 15:07 04:09 Total Bilirubin 0.8 0.4 (0.2-1.0) mg/dL AST 28 57 H (15-37) U/L ALT 27 33 (16-63) U/L Alkaline Phosphatase 78 62 (46-116) U/L Albumin 3.3 L 2.6 L (3.4-5.0) g/dL Urine 11/14/23 Range/Units 16:46 Urine Color Yellow (YELLOW) Urine Clarity Clear (CLEAR) Urine pH 5.5 (5.0-9.0) Ur Specific [place] 1.020 (1.005-1.025) Urine Protein 30 A (NEG/TRACE) mg/dL Urine Glucose (UA) >=1000 A (NEGATIVE) mg/dL HS Troponin level Specimen 11/15/23 04:09 397.7?H* 11/14/23 16:50 232.1?H* 11/14/23 15:07 229.5?H* Specimen Pro BNP 11/15/23 04:09 5960.0?H* 11/14/23 20:06 5380.0?H* ABG ABG results: 11/14/23 15:07 VBG pH 7.422 VBG pCO2 27.5 L Pulse Oximetry Attestation: I have reviewed the pertinent pulse oximetry results. Interpretation: stable saturations on room air ECG Attestation: ?I have reviewed the pertinent ECG results. ECG interpretation date: 11/15/23 Interpretation: Interpretive Statements 1100 Sinus rhythm 4068 Nonspecific Twave abnormality 5233 Voltage criteria for LVH 9150 abnormal ECG No previous ECG available for comparison Imaging TTE: Radiologist's impression: [place] [address] Cardiology Report Signed Patient: KALINA NOWAK MR#: [id number] : 1935 Acct:[id number] Age/Sex: 88 / M ADM Date: 11/14/23 Loc: ICU 272-[address]: Keo Bullock M.D. Ordering Physician: Hoy,Keo M.D. Date of Service: 11/15/23 Procedure(s): CA echo doppler complete Accession Number(s): [id number] cc: Keo Bullock M.D.; Physician,Non-Staff Billie~ Patient Name: KALINA NOWAK MR#: [id number] : 1935 Exam Date: 11/15/2023 Ordering Doctor: DR Koe Bullock . ECHOCARDIOGRAM REPORT PROCEDURE: CA ECHO DOPPLER COMPLETE INDICATIONS: Elevated TROP - BNP, diabetes COMPARISON: None. DESCRIPTION: COMPLETE ECHOCARDIOGRAM Real-time transthoracic echocardiography with 2D, M-mode, spectral and color flow Doppler performed. QUALITY: Technical quality was good. LEFT VENTRICLE: Normal chamber size. Mild concentric left ventricular hypertrophy. LV EF: Global left ventricular systolic function is mild to moderately reduced; estimated ejection fraction is 35-40%. Calculated left ventricular ejection fraction is 33%. Diffuse hypokinesis. DIASTOLIC: Grade II diastolic dysfunction. ATRIAL SEPTUM: Visually appears intact. LEFT ATRIUM: Severe dilatation. RIGHT ATRIUM: Moderate dilatation. RIGHT VENTRICLE: Normal chamber size. Normal right ventricular systolic function. TRICUSPID VALVE: Normal mobility and thickness. Mild regurgitation. Moderately elevated right ventricular systolic pressure; RVSP is 52 mmHg. MITRAL VALVE: Mildly thickened with normal mobility. Mild mitral annular calcification. Moderate to severe mitral regurgitation. AORTIC VALVE: Normal trileaflet appearance. Severely calcified aortic valve. Severely diminished mobility. Doppler velocity suggests severe aortic valve stenosis. DVI 0.2, MILLIE 0.8 cm2. No aortic regurgitation. AORTIC ROOT: Normal diameter and appearance. PULMONIC VALVE: Normal thickness and mobility. No stenosis. Trivial regurgitation. PERICARDIUM: No evidence of pericardial effusion. IVC: Collapses with inspirations. IVC is normal in size. CONCLUSION: 1. Global left ventricular systolic function is mild to moderately reduced; visually estimated ejection fraction is 35 to 40% 2. Right ventricle is normal in size and systolic function 3. Grade 2 diastolic dysfunction 4. Biatrial enlargement 5. Mild tricuspid regurgitation 6. Moderately elevated right ventricular systolic pressure; RVSP is 52 mmHg 7. Moderate to severe mitral regurgitation 8. Severe aortic valve stenosis; DVI 0.2 Chest x-ray: Attestation: I have reviewed the pertinent imaging results. Radiologist's impression: Lungs/pleura: No pneumothorax. Retrocardiac opacity and left costophrenic angle blunting, likely representing small left pleural effusion and left lower lobe atelectasis and/or pneumonia. Heart and mediastinum: Normal contours. Bones: No acute abnormality identified. XR/XR chest 1V Impression: small left pleural effusion and left lower lobe atelectasis and/or pneumonia. Electronically authenticated by: BRETT GUIDO Date: 11/14/2023 15:50 Assessment and Plan Assessment and Plan (1) Pneumonia: Assessment and Plan: managed by Primary service (2) Altered mental status: Assessment and Plan: resolved (3) NSTEMI (non-ST elevated myocardial infarction): Assessment and Plan: Mildly elevated HS Troponin- with newly reduced EF and severe AO stenosis- D/W Dr Woods- inteventionalist and plan to transfer pt to [facility] for cardiac cath- RT LT and CORS and further optimization of HFrEF. NSTEMI most likely r/t [place] ischemia 2/2 acute HFrEF but pt needs ischemic evaluation Currently pt is on lovenox, start ASA and metoprolol Provider called [facility] for transfer and SBAR to hopsitalist service- Sergio VÁSQUEZ (4) Acute on chronic systolic heart failure, NYHA class 3: Assessment and Plan: NYHC 3, with reduced EF Plan for cardiac cath with transfer to [facility] Start optimization of GDMT - start ASA, toprol and resume crestor at [facility]- non formulary at [facility]. B/P labile and renal function elevated therefore unable to start SAMY I, ARB, ARNI or Aldactone at this time. Currently he appears fairly euvolemic on exam. (5) Mixed hyperlipidemia: Assessment and Plan: Chol 126, LDL 57- currently lipids are well controlled with Crestor 20 mg (6) DM type 2 (diabetes mellitus, type 2): Assessment and Plan: managed by others (7) Severe aortic stenosis: Assessment and Plan: Plan for transfer to [facility] and cardiology to start process/workup for possible TAVR (8) Moderate mitral regurgitation: Assessment and Plan: Continue to monitor Plan as above
[2023-11-15] MEDS: METOPROLOL SUCCINATE 25 MG TAB.ER.24H 12.5 MG PO (14:01)
[2023-11-15] MEDS: ASPIRIN 81 MG TAB.CHEW PO (14:01)
[2023-11-15 14:03] LABS: Chol HDL Ratio 4.5; Cholesterol 126 mg/dL (<=200); HDL Cholesterol 28 mg/dL (40-60); Triglycerides 205 mg/dL (<=150)
--- NOTE | 2023-11-15 14:17 | SWNOTE1 ---
Home health is being recommended for pt, but pt is going to be transferred to different hospital.
--- NOTE | 2023-11-15 19:00 | ECG_ITS ---
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
[2023-11-16 00:08] VITALS: PULSE 94; RESP 12
[2023-11-16 02:00] VITALS: PULSE 95
[2023-11-16 03:09] VITALS: PULSE 96
[2023-11-16 03:57] VITALS: O2SAT 96
[2023-11-16 04:17] VITALS: BP 108/69; PULSE 102; PULSE 96; RESP 12; TEMP 36.4; O2SAT 97
[2023-11-16 04:33] LABS: Hematocrit 38.8 % (42.0-54.0); Hemoglobin 12.4 g/dL (14.0-18.0); Mean Corpuscular Hemoglobin 25.9 pg (25.9-34.0); Mean Corpuscular Volume 81.2 fL (80.0-94.0); Mean Platelet Volume 12.1 fL (9.5-13.5); Platelet Count 198 10^3/uL (150-450); Red Blood Count 4.78 10^6/uL (4.70-6.10); Red Cell Distribution Width 15.9 % (11.0-15.0); White Blood Count 15.2 10^3/uL (4.0-11.0)
[2023-11-16 05:06] LABS: Alanine Aminotransferase 38 U/L (16-63); Albumin Globulin Ratio 0.5; Albumin Level 2.4 g/dL (3.4-5.0); Alkaline Phosphatase 68 U/L (46-116); Anion Gap 16.1; Aspartate Amino Transferase 73 U/L (15-37); BUN Creatinine Ratio 29.3; Bilirubin Total 0.5 mg/dL (0.2-1.0); Calcium 8.7 mg/dL (8.5-10.1); Carbon Dioxide 22.6 mmol/L (21.0-32.0); Chloride 107 mmol/L (98-107); Estimated GFR (African America 51 (>=60); Estimated GFR (Non-African Ame 42 (>=60); Globulin 4.4 g/dL; Glucose 189 mg/dL (74-106); Potassium 3.7 mmol/L (3.5-5.1); Sodium 142 mmol/L (136-145); Total Protein 6.8 g/dL (6.4-8.2)
[2023-11-16 05:14] LABS: Magnesium 2.5 mg/dL (1.8-2.4)
[2023-11-16 05:31] LABS: Troponin I High Sensitivity 353.7 pg/mL (4.0-76.1)
[2023-11-16 06:24] LABS: Atypical Lymphocytes Abs Man 0.45; Band Neutrophils Absolute 1.8 10^3/uL (0.0-0.3); Lymphocytes Absolute Manual 0.15 10^3/uL (1.20-3.80); Monocytes Absolute Manual 0.45 10^3/uL (0.30-0.80); Segmented Neut Absolute Manual 12.31 10^3/uL (1.4-6.5)
--- NOTE | 2023-11-16 12:10 | P.DS_ITS ---
DS: Providers Provider Date of admission: 11/14/23 21:25 Primary care physician: Non-Staff Physician, Consults: 11/14/23 19:29 Occupational Therapy Eval and Treat Routine Reason for consultation: weakness, Hx falls Has provider been notified: No Physical Therapy Eval and Treat Routine Reason for consultation: weakness, Hx falls Has provider been notified: No 11/15/23 09:10 Consult to Cardiology Routine Reason for consultation: elevated trop Has provider been notified: No DS: Diagnosis Discharge Diagnosis (1) Pneumonia: (2) Altered mental status: (3) NSTEMI (non-ST elevated myocardial infarction): (4) Acute on chronic systolic heart failure, NYHA class 3: (5) Mixed hyperlipidemia: (6) DM type 2 (diabetes mellitus, type 2): (7) Severe aortic stenosis: (8) Moderate mitral regurgitation: Plan Sinus tachycardia, respiratory distress, leukocytosis, lactic acidosis secondary to left lower lobe pneumonia resulting in severe sepsis without shock due to Staph aureus. Elevated troponin Left pleural effusion Iron deficiency anemia Mild systolic ejection murmur- NIDDM DS: Summary Hospital Course Hospital Course: Patient admitted with sinus tachycardia, respiratory distress, leukocytosis, lactic acidosis secondary to left lower lobe pneumonia resulting in severe sepsis without shock due to Staph aureus. IV antibiotics, aerosol treatments, try to obtain sputum culture, blood culture possible positive for Staph aureus. Patient also had elevated high-sensitivity troponins, echocardiogram and with changes in case was discussed with cardiology who felt patient could benefit from a heart cath. Patient was then transferred to the [facility] [place] for heart cath. Time Spent with Patient Time attestation: Total time spent providing and/or coordinating discharge services: Exam Constitutional Vital Signs, click to edit/add: Last Vital Signs Temp 97.5 F L 11/16/23 04:17 Pulse 96 H 11/16/23 04:17 Resp 12 11/16/23 04:17 BP 108/69 11/16/23 04:17 Pulse Ox 97 11/16/23 04:17 O2 Del Method Room Air 11/16/23 04:17 O2 Flow Rate 2 11/15/23 05:29 Common normals: no apparent distress, average body habitus, oriented x3 and well nourished General appearance: cooperative and well kempt Respiratory Common normals: normal respiratory effort, no retractions and no use of accessory muscles Auscultation: diminished lung sounds (Diminished b/L Bases) bilateral Cardio Common normals: no JVD, regular rate, regular rhythm, S1 normal heart sound and S2 normal heart sound Heart sounds: murmur (3/6 RUSQ systolic murmur) systolic Peripheral pulses: radial pulses present, posterior tibial pulses present and dorsalis pedis pulses present Extremity Common normals: normal capillary refill; clubbing, cyanosis or edema (BLE 1-2+ edema) Neuro Common normals: oriented x3 and CN's II-XII intact bilaterally Psych Common normals: mental status grossly normal, thought process normal, cooperative, affect normal and speech normal Discharge Plan Discharge Disposition: [facility] Condition: Good Discharge Date/Time: 11/16/23 05:20 Discharge Location: [facility]
== END 2023-11-16 05:20 | disposition short-term general hospital (02) | DRG 871 ==
LOC: ER 19:00 → ICU 21:32
PROVIDERS: Family Medicine; Nurse Practitioner; Nurse Practitioner Acute Care; Physician Assistant; Admitting Provider Family Medicine; Emergency Provider Emergency Medicine; Visit Provider Family Medicine
DX: A41.01 Sepsis due to Methicillin susceptible Staphylococcus aureus (principal); I21.A1 Myocardial infarction type 2; J18.9 Pneumonia, unspecified organism; I50.23 Acute on chronic systolic (congestive) heart failure; E87.20 Acidosis, unspecified; E11.9 Type 2 diabetes mellitus without complications; R65.20 Severe sepsis without septic shock; D50.9 Iron deficiency anemia, unspecified; R01.1 Cardiac murmur, unspecified; I08.0 Rheumatic disorders of both mitral and aortic valves; E78.2 Mixed hyperlipidemia; Z87.891 Personal history of nicotine dependence; Z20.822 Contact with and (suspected) exposure to COVID-19; Z79.899 Other long term (current) drug therapy; Z79.84 Long term (current) use of oral hypoglycemic drugs; R06.03 Acute respiratory distress
CPT/HCPCS: 0202U; 36415; 70450; 71045; 80053; 80061; 81001; 82800; 83605; 83735; 83880; 84443; 84484; 85007; 85025; 85027; 85610; 87040; 87150; 87186; 93005; 93306; 93356; 94761; 96361; 96365; 96366; 96367; 96368; 96372; 96375; 97161; 97165; 97530; 99285; J0456; J0696; J1650; J2020; J2543

== ENCOUNTER 2025-08-27 12:08 | Emergency (ER) | payer MEDICARE, SELFPAY ==
--- OUTSIDE RECORDS SUMMARY | 2025-08-22 08:30 | XMS_ITS | Encounter Summary ---
Author Organization [facility] Address [address] [place] [address] Care Team Providers Care Track Layer Name Role Phone Ching Quintanilla MD Primary Care Provider Linette Cueva VIDEO PLAYER MECHANIC Unavailable [phone] Kami Lopez RN Unavailable [phone] Shana Betancourt VIDEO PLAYER MECHANIC Unavailable [phone] Reason for Visit * ReasonCommentsPalliative Care Follow-up Encounter Details DateTypeDepartmentCare Team (Latest Contact Info)Oqhrxytcbmn23/21/2025 8:30 AM ESTOffice Visit [facility] [address] [place] [phone] Shana Betancourt, VIDEO PLAYER MECHANIC [address] [place] [address] Encounter for palliative care in home, non-hospice (Primary Dx); SOB (shortness of breath); Fatigue, unspecified type; Bilateral lower extremity edema; Chronic systolic heart failure (HCC); Coronary artery disease involving craig coronary artery of craig heart without angina pectoris; Stage 4 chronic kidney disease (HCC) Social History Tobacco UseTypesPacks/DayYears UsedDateSmoking Tobacco: FormerCigarettes Smokeless Tobacco: Never Comments:15+ years since las t smoked Alcohol UseStandard Drinks/WeekCommentsNot Currently0 (1 standard drink = 0.6 oz pure alcohol)caffeine: 1-2 cups per dayAUDIT-CAnswerDate RecordedQ1: How often do you have a drink containing alcohol?Monthly or less01/15/2024Q2: How many drinks containing alcohol do you have on a typical day when you are drinking?1 or Q3: How often do you have six or more drinks on one occasion?Never 01/15/2024HQ-2AnswerDate RecordedPatient Health Questionnaire-2 Score0 07/04/2025Sex and Gender InformationValueDate RecordedSex Assigned at BirthNot on fileLegal UduVpeg6512/14/2022 7:36 PM EDTGender IdentityNot on fileSexual OrientationNot on filedocumented as of this encounter Last Filed Vital Signs Vital SignReadingTime TakenCommentsBlood Zfktxhjp947/7808/22/2025 7:00 AM EST Eoxjo529108/22/2025 7:00 AM RFTZwcntnxndpb80.6 ??C (97.9 ??F)08/22/2025 7:00 AM ESTRespiratory Rate--Oxygen Ezqnqtlqsj84%08/22/2025 7:00 AM ESTInhaled Oxygen Concentration--Weight--Height--Body Mass Index--documented in this encounter Progress Notes * Shana Betancourt NP - 08/22/2025 8:30 AM EST Images from the original note were not included. Riki Grubbs Date of : 1935 Chief Complaint Patient presents with Palliative Care Follow-up HPI Patient is seen today for palliative care follow up. He reports he has been doing well. He and his son have plans to go to [facility] next week. He continues to do everything necessary to care forhimself without assistance. Continues with a longstanding cough in the morning that gets better andclears as the day goes one. Bilateral lower extremity swelling remains controlled. Pt continues to follow with nephrology and plans to have son call to scheduled a follow up visit with cardiology. Palliative Functional assessment: 70% - Reduced Ambulation, Can't do normal job or work/Some Disease, Full Self- Care, Normal or Reduced Intake, LOC - Full The following portions of the patient's history were reviewed and updated as appropriate: allergies, current medications, past family history, past medical history, past social history, past surgicalhistory and problem list. Past History Medical History[1] Surgical History[2] Current Outpatient Medications Medication Instructions amiodarone (PACERONE) 200 mg, Oral, Daily aspirin 81 mg, Daily RT bumetanide (BUMEX) 1 mg, Oral, Daily ferrous sulfate (FEROSUL) 325 mg, Oral, Daily with breakfast folic acid (FOLVITE) 1,000 mcg, Oral, Every morning glucose blood (Accu-Chek Nevaeh Plus) test strip 1 each, Other, 2 times daily, Use as instructed hydrALAZINE (APRESOLINE) 10 mg, Oral, 3 times daily isosorbide dinitrate (ISORDIL) 10 mg, Oral, 3 times daily Lantus SoloStar 6 Units, Subcutaneous, Nightly levothyroxine (SYNTHROID) 25 mcg, Oral, Daily, Take on an empty stomach metoprolol succinate XL (TOPROL-XL) 12.5 mg, Oral, Daily pen needle 32G x 5 mm misc Use as instructed rosuvastatin (CRESTOR) 20 mg, Oral, Daily sodium bicarbonate 650 mg, Oral, 2 times daily tamsulosin (FLOMAX) 0.4 mg, Daily RT Allergies[3] Tobacco History: reports that he has quit smoking. His smoking use included cigarettes. He has never used smokeless tobacco. Counseling given: Not Answered Tobacco comments: 15+ years since last smoked Last Height and Weight with BMI: There is no height or weight on file to calculate BMI. Last 3 Weights: Wt Readings from Last 3 Encounters: 07/04/25 216 lb 07/30/24 241 lb 6.4 oz 07/01/24 242 lb ROS: Modified ESAS Pain none Shortness of Breath denies any at rest and occurs primarily only with exertion. States from the time he walks from the house to the car, he is ready for a rest Loss of Appetite some days are better than others, but some foods that used to appeal to him don't any more. Nausea/Vomiting none Constipation/Diarrhea none Fatigue states if I don't have to do anything, I don't. Sits in the chair quite a bit and watchesTV. Does go out to eat with family weekly and will run errands with his son. Drowsiness depends on how good he sleeps at night - sometimes will nap off and on through the day Insomnia has 2-3 nights per week where he does not sleep as well so he will get up to watch TV and will then is able to fall asleep. Depression none Anxiety none PHYSICAL EXAM : Vitals: 08/22/25 0700 BP: 124/78 Pulse: 63 Temp: 97.9 ??F SpO2: 97% Physical Exam Vitals and nursing note reviewed. Constitutional: General: He is not in acute distress. Appearance: Normal appearance. He is not ill-appearing. HENT: Nose: Nose normal. Mouth/Throat: Mouth: Mucous membranes are moist. Eyes: Conjunctiva/sclera: Conjunctivae normal. Cardiovascular: Rate and Rhythm: Normal rate and regular rhythm. Pulses: Normal pulses. Heart sounds: Murmur heard. Pulmonary: Effort: Pulmonary effort is normal. No respiratory distress. Breath sounds: No wheezing, rhonchi or rales. Abdominal: General: Abdomen is flat. Bowel sounds are normal. Palpations: Abdomen is soft. Musculoskeletal: General: Normal range of motion. Cervical back: Normal range of motion and neck supple. Right lower leg: No edema. Left lower leg: No edema. Skin: General: Skin is warm. Neurological: General: No focal deficit present. Mental Status: He is alert and oriented to person, place, and time. ASSESSMENT AND PLAN : 1. Encounter for palliative care in home, non-hospice (Primary) Continue to follow for symptoms r/t to heart disease as well as CKD. Continues to follow with cardiology and nephrology despite not wanting any aggressive treatment. Pt primary goal remains to stay at home and avoid a hospital stay for any reason. Ongoing goals of care discussion held - goal is to remain at home. Does not wish to go back to the hospital at anytime. Pt understands what options are, including hospice, if symptoms of CHF/heart disease do not resolve despite treatment or worsening kidney function. 2. SOB (shortness of breath) Continues to be able to do things that he enjoys with use of the scooter d/t SOB primarily on exertion Denies any SOB at rest LSCTA Continues on Bumex 3. Fatigue, unspecified type This is a chronic medical condition that is stable since last assessment. No changes in treatment are suggested at this time. 4. Bilateral lower extremity edema This is a chronic medical condition that is stable since last assessment. No changes in treatment are suggested at this time. 5. Chronic systolic heart failure (HCC) Continues to follow with cardiology 6. Coronary artery disease involving craig coronary artery of craig heart without angina pectoris Continues to follow with cardiology 7. Stage 4 chronic kidney disease (HCC) Continues to follow with nephrology Condition and plan discussed with patient in detail, patient agrees with plan. For any new medications prescribed today, patient was educated about indications for the medication, how to take the medication and potential side effects of the medications. Risk, benefits, and side effects of medicines discussed with the patient, patient agrees with plan. Patient to return to be seen: Follow up in about 3 months (around 11/22/2025). [1] Past Medical History: Diagnosis Date Acute on chronic systolic heart failure, NYHA class 2 (HCC) 11/16/2023 Last Assessment & Plan: NYHC II currently euvolemic without exacerbation Continue GDMT- lipitor, toprol and Diuretic therapy- bumex Limited GDMT r/t CKD and hypotension Monitor daily weights, I&O, fluid restriction 1.5-2L/day, renal function and electrolytes- please maintain K+>4 and Mg > 2 Adenomatous colon polyp tubular adenomas x3 Basal cell carcinoma Bursitis and tendinitis of shoulder region Cervicalgia CHF (congestive heart failure) (HCC) Coronary artery disease involving craig coronary artery of craig heart without angina pectoris Elevated prostate specific antigen (PSA) Infected sebaceous cyst I &D Mixed hyperlipidemia Moderate to severe aortic stenosis Obesity Sebaceous cyst Seborrheic keratosis eyelid Tendinitis Tobacco abuse, in remission Type 2 diabetes mellitus (HCC) adult onset [2] Past Surgical History: Procedure Laterality Date BASAL CELL CARCINOMA EXCISION 01/22/2024 top of head CARDIAC CATHETERIZATION ([id number] - non critical stenosis) CLOSED REDUCTION TIBIAL FRACTURE 2006 - intramedullary nail/[facility] COLONOSCOPY (1999 - polypsx3 tubular adenomas/[facility]) OTHER SURGICAL HISTORY 2008 - chest/[facility] SKIN GRAFT 01/22/2024 top of head TONSILLECTOMY UMBILICAL HERNIA REPAIR (2008 - [facility]) [3] Allergies Allergen Reactions Apixaban Other epistaxis documented in this encounter Plan of Treatment DateTypeDepartmentCare Team (Latest Contact Info)Bbcbuupqqcm19/13/2026 8:30 AM ESTOffice Visit [facility] [address] [place] [address] Shana Betancourt, VIDEO PLAYER MECHANIC [address] [place] [address] documented as of this encounter Visit Diagnoses Diagnosis Encounter for palliative care in home, non-hospice- Primary SOB (shortness of breath) Shortness of breath Fatigue, unspecified type Bilateral lower extremity edema Chronic systolic heart failure (HCC) Chronic systolic heart failure Coronary artery disease involving craig coronary artery of craig heart without angina pectoris Stage 4 chronic kidney disease (HCC) documented in this encounter Additional Health Concerns AssessmentNoted TimePHQ-9 Depression Total Score: 8:00 AM EDTA fall risk assessment has been completed for the flmgcdw3401/03/2025 8:48 AM EDT documented as of this encounter Care Teams Team MemberRelationshipSpecialtyStart DateEnd Date Ching Quintanilla MD [address] [facility] [address] [place], [place] [phone] PCP - GeneralFamily Medicine10/19/23 Shana Betancourt, ANAHI [address] [place] [address] PCP - [employer]5 Linette Cueva NP [facility] [facility] [address] [place], [place] [phone] Nurse PractitionerFamily Medicine10/19/23 Kami Lopez, RN [address] [facility] [place] [address] Registered NurseFamily Medicine01/17/24documented as of this encounter
[2025-08-27 12:20] VITALS: PULSE 69
--- NOTE | 2025-08-27 12:23 | XR_ITS ---
[facility] [place] [id number] Patient Name: KALINA NOWAK MRN: [id number] date: 1935 Sex: M Assigned Patient Location: ED.MAIN Current Patient Location: ED.MAIN Accession/Order Number: [id number] Exam Date: 08/27/2025 12:30 Report Date: 08/27/2025 13:07 At the request of: PRITI VELASQUEZ MD Procedure: XR hip LT 2V w/ pelvis Left hip 2 views with one view pelvis. Reason for exam: Fall with left hip pain. COMPARISON: None. FINDINGS: Bones are grossly demineralized. There is a comminuted fracture involving the intertrochanteric region of the left hip. Degenerative changes are seen involving the visualized lower lumbar spine, SI joints and hips bilaterally. XR/XR hip LT 2V w/ pelvis IMPRESSION: Comminuted fracture intratrochanteric region left hip. Impression dictated by: Johnny Everett Jr., D.OCarlos 08/27/2025 1:07 PM Dictation Location: [place] [address] Electronically authenticated by: [id number] Date: 08/27/2025 13:07
--- OUTSIDE RECORDS SUMMARY | 2025-08-27 12:23 | XMS_ITS | Encounter Summary ---
Author Organization [facility] Address [address] [place] [address] Care Team Providers Care Carpenters Name Role Phone Ching Quintanilla MD Primary Care Provider [phone] Linette Cueva CLINICAL BIOCHEMIST Unavailable [phone] Kami Lopez RN Unavailable [phone] Shana Betancourt CLINICAL BIOCHEMIST Unavailable [phone] Encounter Details DateTypeDepartmentCare Team (Latest Contact Info)Cdkxtceodkq89/25/2025Refill [facility] Medicine [address] [place] [address] Ching Quintanilla MD [address] [place] [address] Hypertensive chronic kidney disease with stage 1 through stage 4 chronic kidney disease, or unspecified chronic kidney disease Social History Tobacco UseTypesPacks/DayYears UsedDateSmoking Tobacco: FormerCigarettes [...] InformationValueDate RecordedSex Assigned at BirthNot on fileLegal OoxXaqz1812/14/2022 7:36 PM EDTGender IdentityNot on fileSexual OrientationNot on filedocumented as of this encounter Plan of Treatment DateTypeDepartmentCare Team (Latest Contact Info)Qqumspkywtu34/13/2026 8:30 AM ESTOffice Visit [facility] [address] [place] [address] Shana Betancourt, CLINICAL BIOCHEMIST [address] [place], [place] [phone] documented as of this encounter Visit Diagnoses Diagnosis Hypertensive chronic kidney disease with stage 1 through stage 4 chronic kidney disease, or unspecified chronic kidney disease documented in this encounter Additional Health Concerns AssessmentNoted TimePHQ-9 Depression Total Score: 8:00 AM EDTA fall risk assessment has been completed for the vmamden1401/03/2025 8:48 AM EDT documented as of this encounter Care Teams Team MemberRelationshipSpecialtyStart DateEnd Date Ching Quintanilla MD [address] [place], [place] [phone] PCP - GeneralFamily Medicine10/19/23 Shana Betancourt CLINICAL BIOCHEMIST [address] [place], [place] [id number] PCP - [employer]5/10/23 Linette Cueva NP [address] [facility] [place] [address] Nurse PractitionerFamily Medicine10/19/23 Kami Lopez, RN [address] [facility] [place] [address] Registered NurseFamily Medicine01/17/24documented as of this encounter
--- OUTSIDE RECORDS SUMMARY | 2025-08-27 12:23 | XMS_ITS | Encounter Summary ---
Author Organization [facility] Address [address] [place] [address] Care Team Providers Care Tube Laser Operator Name Role Phone Ching Quintanilla MD Primary Care Provider [phone] Linette Cueva MOISTURE METER OPERATOR Unavailable Kami Lopez RN Unavailable [phone] Shana Betancourt MOISTURE METER OPERATOR Unavailable [phone] Encounter Details DateTypeDepartmentCare Team (Latest Contact Info)Pbytubkkjjl40/19/2025Patient Outreach [facility] [address] [place] [phone] Kami Lopez, RN [address] [place] [address] Social History Tobacco UseTypesPacks/DayYears UsedDateSmoking Tobacco: FormerCigarettes [...] six or more drinks on one occasion?Never 4PHQ-2AnswerDate RecordedPatient Health Questionnaire-2 Score0 07/04/2025Sex and Gender InformationValueDate RecordedSex Assigned at BirthNot on fileLegal YrqKzkp9712/14/2022 7:36 PM EDTGender IdentityNot on fileSexual OrientationNot on filedocumented as of this encounter Progress Notes * Kami Lopez RN - 08/20/2025 1:47 PM EST Chart reviewed. Noted pt does not have a fu with cardio, last appt was 05/2024, reviewed last note, pt was to fu in 6m. Called pt, states he is feeling ok, states he was eating lunch at [employer] at time of call so callwas ended. * Kami Lopez RN - 08/20/2025 1:47 PM EST Noted. Thank you documented in this encounter Plan of Treatment DateTypeDepartmentCare Team (Latest Contact Info)Fpeobrwpoje07/13/2026 8:30 AM ESTOffice Visit [facility] [address] [phone] Shana Betancourt, MOISTURE METER OPERATOR [address] [place] [address] documented as of this encounter Visit Diagnoses Diagnosis Acute on chronic systolic heart failure, NYHA class 2 (HCC)- Primary Type 2 diabetes mellitus with hyperglycemia, without long-term current use of insulin (FORM[facility]) documented in this encounter Additional Health Concerns AssessmentNoted TimePHQ-9 Depression Total Score: 309 8:00 AM EDTA fall risk assessment has been completed for the deguewf1401/03/2025 8:48 AM EDT documented as of this encounter Care Teams Team MemberRelationshipSpecialtyStart DateEnd Date Ching Quintanilla MD [address] [place] [address] PCP - GeneralFamily Medicine10/19/23 Shana Betancourt, MOISTURE METER OPERATOR [address] [place] [address] PCP - Human01/30/22 Linette Cueva NP [facility] [facility] [place] [address] Nurse PractitionerFamily Medicine10/19/23 Kami Lopez, FELISA [facility] [facility] [place] [address] Registered NurseFamily Medicine01/17/24documented as of this encounter
--- OUTSIDE RECORDS SUMMARY | 2025-08-27 12:23 | XMS_ITS | Clinical Summary ---
Author Organization [facility] Address [address] [place] [address] Care Team Providers Care Oil Deliverer Name Role Phone Ching Quintanilla MD Primary Care Provider [phone] Allergies Active AllergyReactionsCriticalityNoted RormUjdlwcsmUqpuremlXnwki76/02/2024 epistaxis Medications MedicationSigDispense QuantityRefillsLast FilledStart DateEnd DateStatus bumetanide (Bumex) 2 mg tablet Indications:HFrEF (heart failure with reduced ejection fraction) (CMS/HCC)Take 1 tablet (2 mg) by mouth every 12 (twelve) hours for 187 doses. 60 tablet ctive Additional Information Patient taking differently:2 mg oralDaily, Reported on 02/23/2024 isosorbide dinitrate (Isordil) 10 mg tablet Indications:HFrEF (heart failure with reduced ejection fraction) (CMS/HCC)Take 1 tablet (10 mg) by mouth three times daily for 286 doses. 90 tablet ctive hydrALAZINE (Apresoline) 10 mg tablet Indications:HFrEF (heart failure with reduced ejection fraction) (CMS/HCC)Take 1 tablet (10 mg) by mouth three times daily for 90 doses. 90 tablet 12/13/2023ctive metoprolol succinate XL (Toprol-XL) 25 mg 24 hr tablet Indications:HFrEF (heart failure with reduced ejection fraction) (CMS/HCC)Take 0.5 tablets (12.5 mg) by mouth in the morning for 96 doses. Do not crush or chew. 15 tablet ctive insulin lispro (HumaLOG) 100 unit/mL injection Indications:Type 2 diabetes mellitus with hyperglycemia, without long-term current use of insulin (CMS/HCC)Inject 0-5 Units under the skin with breakfast, with lunch, and with evening meal for 257 doses. 10 mL ctive insulin lispro (HumaLOG) 100 unit/mL injection Indications:Type 2 diabetes mellitus with hyperglycemia, without long-term current use of insulin ([facility])Inject 0-4 Units under the skin at bedtime for 95 doses. 10 mL ctive insulin glargine (Lantus) 100 unit/mL injection vial Indications:Type 2 diabetes mellitus with hyperglycemia, without long-term current use of insulin ([facility])Inject 6 Units under the skin at bedtime for 74 doses. 10 mL ctive rosuvastatin (Crestor) 20 mg tablet Indications:HFrEF (heart failure with reduced ejection fraction) ([facility]), Atherosclerosis of [place] coronary artery without angina pectoris, unspecified whether [place]etm[place] or transplanted heartTake 0.5 tablets (10 mg) by mouth in the morning. 15 tablet 12/13/2023ctive Additional Information Patient taking differently: 20 mgoralNightly, Reported on 08/01/2024 atorvastatin (Lipitor) 20 mg tablet Take 20 mg by mouth in the morning.Active magnesium hydroxide (MILK OF MAGNESIA ORAL) Take by mouth.Active Klor-Con M20 20 mEq ER tablet Take 20 mEq by mouth in the morning and at bedtime.02/05/2024ctive aspirin 81 mg EC tablet Take 81 mg by mouth in the morning.Active ferrous sulfate 325 (65 Fe) MG tablet Take 325 mg by mouth two times daily.04/24/2024ctive folic acid (Folvite) 1 mg tablet Take 1 tablet by mouth in the morning.07/29/2024ctive tamsulosin (Flomax) 0.4 mg 24 hr capsule Indications:Stage 3b chronic kidney disease ([facility])TAKE 1 CAPSULE EVERY MORNING 90 capsule 5Active amiodarone (Pacerone) 200 mg tablet Indications:HFrEF (heart failure with reduced ejection fraction) ([facility])Take 1 tablet (200 mg) by mouth in the morning. 90 tablet 508/6Active sodium bicarbonate 650 mg tablet Indications:Chronic kidney disease, stage 4 (severe) ([facility])TAKE 1 TABLET TWICE DAILY 180 tablet 3105Active bumetanide (Bumex) 1 mg tablet Indications:Edema of lower extremityTAKE 1 TABLET TWICE DAILY 180 tablet 5Active bumetanide (Bumex) 1 mg tablet Indications:Edema of lower extremityTake 1 tablet (1 mg) by mouth two times daily. 180 tablet Discontinued Active Problems ProblemNoted DateDiagnosed DateType 2 diabetes mellitus with stage 4 chronic kidney disease, with long-term current use of dtzzoiy0207/01/2024Encounter for palliative care in home, non-yxooelu59/ltered mental status /Hypertensive chronic kidney disease with stage 1 through stage 4 chronic kidney disease, or unspecified chronic kidney rystyyr3712/12/2023 FREEDMO (acute kidney injury)12/12/2023cute kidney injury superimposed on CKD 11/26/2023Endocarditis of mitral valve11/23/2023 Assessment & Plan (05/03/2024 10:41 AM EDT): Pt has completed his Antibiotic regime Had f/U with CT surgery and does not want any surgery or invasive procedures Assessment & Plan (12/15/2023 12:56 PM EDT): Remains on IV antibiotics per ID, f/U as scheduled Severe mitral valve cavxzzrrirgpk15/16/2024 Assessment & Plan (05/03/2024 10:44 AM EDT): Refusing surgery No concerning symptoms at this time Assessment & Plan (12/15/2023 12:54 PM EDT): Currently pt does not want any surgery or invasive procedures Will continue to monitor Severe aortic valve bntymyhq07/16/2024 Assessment & Plan (05/03/2024 10:44 AM EDT): Severe AO stenosis- continue ASA, toprol Refusing invasive procedures or surgery Assessment & Plan (12/15/2023 12:55 PM EDT): Currently pt does not want any surgery or invasive procedures, SAVR/TAVR were d/w pt as inpt and hedeclined Will continue to monitor Paroxysmal atrial blympfkhdlkr42/16/2024 Assessment & Plan (05/03/2024 10:43 AM EDT): DZY7Y0-GJWd= 6 points- Age, CHF, CAD, DM, HTN Remains on amiodarone and toprol, rate controlled and seems to be in rhythm per assessment. Refuses anticoagulation, remains on ASA Assessment & Plan (12/15/2023 12:56 PM EDT): Rate controlled today, Nate anticoagulation was DC'd as inpt r/t epistaxis and pt states he doesnot want to resume any anticoagulation Continue toprol Gram-positive fxkkudbemo91/16/2024cute on chronic systolic heart failure, NYHA class Assessment & Plan (12/15/2023 12:57 PM EDT): NYHC II currently euvolemic without exacerbation Continue GDMT- lipitor, toprol and Diuretic therapy- bumex Limited GDMT r/t CKD and hypotension Monitor daily weights, I&O, fluid restriction 1.5-2L/day, renal function and electrolytes- please maintain K+>4 and Mg > 2 Atherosclerotic heart disease of [place] coronary artery without angina pectoris Assessment & Plan (05/03/2024 10:41 AM EDT): Coronary artery disease is unchanged. Continue GDMT- ASA, lipitor, crestor, toprol Continue current treatment regimen. Continue current medications. Cardiac status will be reassessed in 6 months. No acute or concerning symptoms currently Assessment & Plan (12/15/2023 12:56 PM EDT): Coronary artery disease is stable Continue GDMT- lipitor, toprol continue risk factor modifications- heart healthy diet, regular exercise as tolerated and continue all medications. Jolhxbap91ervicalgiaHx of sebaceous cyst Mixed uvkcmffqlalynm81/27/362729/ Assessment & Plan (05/03/2024 10:42 AM EDT): Continue crestor Denied any myalgias or concerns Last liver function was normal Assessment & Plan (12/15/2023 12:56 PM EDT): Continue lipitor Other chronic painSensorineural hearing loss (SNHL) of both earsMorbid ynlyfnu46Type 2 diabetes mellitus with hyperglycemia, without long-term current use of nkugpwk4406/28/2023 11/28/2023 Assessment & Plan (05/03/2024 10:44 AM EDT): Diabetes is improving with treatment. A1C improving- f/U with PCP as scheduled Wears dkxpeavu27Wears hearing aid in both ears06/28/2023 11/28/2023 Encounters DateTypeDepartmentCare JlldPqzbkcywomv07/28/2025[facility] [address] [place] [address] Olga Lidia Smith MD Edema of lower ovqxlssce16/18/2025[facility] [address] [place] [address] Olga Lidia Smith MD Chronic kidney disease, stage 4 (severe) (CMS/HCC)from Last 3 Months Immunizations ImmunizationAdministration DatesNext DueInfluenza, High Dose Seasonal, Preservative Free07/01/2024,06/22/2020,06/20/2019,08/20/2018Influenza, High-dose Seasonal, Quadrivalent, Preservative Free06/28/2023,06/28/2022,06/23/2021 Pneumococcal Conjugate PCV 13110/20/2017Pneumococcal Polysaccharide PPV23 06/28/2022,10/02/2005 Social History Tobacco UseTypesPacks/DayYears UsedDateSmoking Tobacco: FormerCigarettes Smokeless Tobacco: Never Tobacco Cessation:Counseling Given: Not Answered Alcohol UseStandard Drinks/WeekCommentsNever0 (1 standard drink = 0.6 oz pure alcohol)[facility] UtilitiesAnswerDate RecordedIn the past 12 months has the electric, gas, oil, or water company threatened to shut off services in your home?No 11/16/2023Humiliation, Afraid, Rape, and Kick questionnaireAnswerDate Recorded Within the last year, have you been afraid of your partner or ex-partner?No 11/16/2023Emotionally AbusedNot on file11/16/2023hysically AbusedNot on file 11/16/2023Sexually AbusedNot on file11/16/2023Overall Financial Resource Strain (CARDIA)AnswerDate RecordedHow hard is it for you to pay for the very basics like food, housing, medical care, and heating?Not very hard11/16/2023HQ-2Answer Date RecordedPatient Health Questionnaire-2 Jmjzk116UT Safety & EnvironmentAnswerDate RecordedWithin the last year, have you been afraid of your partner or ex-partner?No11/16/2023Emotionally AbusedNot on file11/16/2023 Physically AbusedNot on file11/16/2023Sexually AbusedNot on file11/16/2023In the past year have you been physically or sexually abused?Unrecognized value 11/16/2023TransportationAnswerDate RecordedIn the past 12 months, has lack of transportation kept you from medical appointments or from getting medications?No 11/16/2023Lack of Transportation (Non-Medical)Not on file11/16/2023Housing Stability Vital SignAnswerDate RecordedUnable to Pay for Housing in the Last YearNot on file11/16/2023Number of Places Lived in the Last YearNot on file 11/16/2023In the last 12 months, was there a time when you did not have a steady place to sleep or slept in [place] (including now)?No11/16/2023Hunger Vital SignAnswerDate RecordedWithin the past 12 months, you worried that your food would run out before you got the money to buymore.Never true4Ran Out of Food in the Last YearNot on file11/16/2023Sex and Gender InformationValueDate RecordedSex Assigned at DcuczZbgm93/15/2024 3:33 PM ESTLegal BtyBlbo5011/15/2023 2:55 PM ESTGender BxekninkEfzb35/15/2024 3:33 PM ESTSexual Orientation Heterosexual or Imxacgue13/15/2024 3:33 PM EST Last Filed Vital Signs Vital SignReadingTime TakenCommentsBlood Kakmqrza14/5205/ 2:10 PM EDT Shxvx750402/20/2025 2:10 PM RUAStdrspdcjor05.8 ??C (98.2 ??F)08/15/2024 3:06 PM ESTRespiratory Dpda376610/15/2023 3:06 PM ESTOxygen Lkcthgfqpo61%08/01/2024 10:44 AM EDTInhaled Oxygen Concentration--Qdgfdf318 kg (234 lb)02/20/2025 2:10 PM EDT Whflbf143.9 cm (6')02/20/2025 2:10 PM EDTBody Mass Index31.7402/20/2025 2:10 PM EDT Plan of Treatment DateTypeDepartmentCare Team (Latest Contact Info)Dqftfgdhtij18/11/2025 1:00 PM ESTFoll[facility] [address] [place] [phone] Olga Lidia Smith MD [address] [facility] [place], [place] 09/19/2025 3:45 PM ESTOffice Visit [facility] [address] [place] [address] Martin Mendez MD [address] [facility] [place] [address] Health MaintenanceDue DateLast DoneCommentsMedicare Annual Wellness (AWV) 1935Diabetes: Retinopathy Iwmhkwstm69/21/1947Depression Screening 1949dult Jzbcdct2901/20/1959Zoster Vaccines (1 of 2)1987Fall Risk Oxbmcuare05/21/2002Diabetes: Urine Protein Tureoqrdl76 Diabetes: Hemoglobin A1C/, 06/28/2023, 2COVID-19 Vaccine ( season)502/09/2021, 10/16/2020neumococcal Vaccine: 50+ LtgpmIjlgifbwr30/27/2022, 08/20/2018, 10/02/2005Influenza Vaccine Ztocqufnp51/03/2025, 07/01/2024, 06/28/2023, Additional history existsHIB VaccinesAged OutNo longer eligible based on patient's age to complete this topic HPV VaccinesAged OutNo longer eligible based on patient's age to complete this topicIPV VaccinesAged OutNo longer eligible based on patient's age to complete this topicMeningococcal B VaccineAged OutNo longer eligible based on patient's age to complete this topicMeningococcal VaccineAged OutNo longer eligible based on patient's age to complete this topicRotavirus VaccinesAged OutNo longer eligible based on patient's age to complete this topic Insurance Advance Directives * DNR CC-A (Latest Code Status on File) Date ActivatedDate InactivatedComments12/01/2023 10:42 AM12/13/2023 2:56 PMQuestion AnswerCommentsSelect If Any Apply:* No Intubation * Full Code Date ActivatedDate InactivatedComments11/16/2023 7:20 AM12/01/2023 10:41 AM Care Teams Team MemberRelationshipSpecialtyStart DateEnd Date Ching Quintanilla MD [address] [place] [address] PCP - GeneralFamily Medicine11/16/23
--- OUTSIDE RECORDS SUMMARY | 2025-08-27 12:23 | XMS_ITS ---
Author Organization [facility] Care Team Providers Care Bankruptcy Legal Assistant Name Role Phone Radha Clark Unavailable Unavailable Arnulfo Russell Unavailable Unavailable Allergies and adverse reactions No Known Allergies Care Team Name Role Address Phone Organization Dates Arnulfo Russell PCP [address] [facility] [address], [place], [address], [place] (Office): : : [facility] 12/13/2023 - 01/05/2024 Radha Clark [address], [place], [address], [place] (Office): : : [facility] 12/13/2023 - 01/05/2024 Goals Section Goals Description Status Target Date Maintain baseline VS x's 90 days. Active 03/18/2024 No s/sx of UTI x's 90 days. Active 03/02 No s/sx of infection through next review. Active 03/18/2024 No s/sx of pain or infection r/t scalp lesion Ac tive 03/18/2024 PICC will remain patent and without s/sx of pain/infection through next review. Active 03/18/2024 Prevent falls x's 90 days. Active 03/18 Prevent skin breakdown r/t pressure x's 90 days. Active 03/18/2024 Resident will continue to re ceive support from family and friends to help maintain mood. Active 03/18/2024 Resident will demonstrate relaxed facial express ions Active 03/18/2024 Resident will discharge to [facility] with services as necessary upon completion of rehab Active 03/18/2024 Resident will express feelin gs d/t lack of control over illness and/or placement Active 03/18/2024 Resident will express positi ve aspect of self and/or situation daily through next review Active 03/18/2024 Resident will receive daily opportunities for social contact through the review date. Active 03/18/2024 Resident will show evidence of adjustment to placement by having meals in dining room, attending activities of choice through the review date. Active 03/18/2024 Resident will verbalize acce ptance of placement in facility through next review Active 03/18/2024 Resident will verbalize/comm unicate and understanding of the discharge plan and describe the desired outcome by the review date. Active 03/18/2024 The resident will maintain t he ability to seek social contact and stimulation through the review date. Active 03/18/2024 Will be free from any s/sx o f hypo/hyperglycemia through the review date. Active 03/18/2024 Will be kept safe and comfor table but will not receive artificial resuscitation. Active 03/18/2024 Will continue to consume at least 75% of meals and be free from s/s hyper/hypoglycemia and dehydration. Active 03/18/2024 Will have minimal or no SOB x's 90 days. Active 03/18/2024 Will have minimal or no edema through next revie w. Active 03/18/2024 Will have no complications r elated to diabetes through the review date. Active 03/18/2024 Will have soft formed BM q1-3 days. x's 90 days. Active 03/18/2024 Will improve current level o f function in order to return home when rehab complete. Active 03/18/2024 Will remain free from discom fort, complications or s/sx related to gastro-intestinal alterations through review date. Active 03/18/2024 Immunizations Immunization Status Vaccine Details Vaccine Code CodeSystem Raf e Notes TB 2 Step Mantoux Skin Test completed tuberculin skin test; unspecified formulation lotNumber: [id number] expiry: 11/30/2024 Mfg: par [employer] Given 0.1 ml Left Forearm intradermally Step 2 of Multi-step with next step required 98 CVX created date: 12/21/2023 consent date: 12/20/2023 administere d date: 12/21/2023 TB 2 Step Mantoux Skin Testcompletedtuberculin skin test; unspecified formulation lotNumber: [id number] expiry: 11/30/2024 Mfg: PAR pharm Given 0.1 ml Right Forearm intradermally Step 1 of Multi-step with next step qjwlmtcs16BBPuxsjcym date: 12/14/2023 consent date: 12/13/2023 administered date: 12/14/2023Educated by Ching Lofton LPN on 12/13/2023 Mental Status Section Date Assessment Total Score Description 01/05/2024 BIMS 14 cognitively int act CAM 0 No delirium ind icated PHQ-9 00 12/19/20236111SPTU70uehsknnxtsm etvjpqEPR0Ja delirium indicatedPHQ-901minimal depression Insurance Providers Plan of Treatment Section Interventions Intervention Code Code System Display Name Proposed D ate Problems Problem # Description Date of onset Resolved Date Code CodeSystem Concern Status 1 ACUTE AND SUBACUTE INFECTIVE ENDOCARDITIS 12/13/[address] active 2 ACUTE KIDNEY FAILURE, UNSPECIFIED 12/13/[address] active 3 ACUTE METABOLIC ACIDOSIS 12/13/[address] active 4 ACUTE SYSTOLIC (CONGESTIVE) HEART FAILURE 12/13/[address] active 5 ANEMIA IN CHRONIC KIDNEY DISEASE 12/13/[address] active 6 ATHEROSCLEROTIC HEART DISEASE OF [place] CORONARY ARTERY WITHOUT ANGINA PECTORIS 12/13/[address] active 7 CHRONIC KIDNEY DISEASE, STAGE 3 UNSPECIFIED 12/13/[address] active 8 HYPERLIPIDEMIA, UNSPECIFIED 12/13/[address] active 9 HYPERTENSIVE HEART AND CHRONIC KIDNEY DISEASE WITH HEART FAILURE AND STAGE 1 THROUGH STAGE 4 CHRONIC KIDNEY DISEASE, OR UNSPECIFIED CHRONIC KIDNEY DISEASE 12/13/[address] active 10 HYPOKALEMIA 12/13/[address] active 11 IRON DEFICIENCY ANEMIA, UNSPECIFIED 12/13/[address] active 12 EMERGENCY DETAIL DRIVER (CURRENT) USE OF INSULIN 12/13/[address] active 13 MELANOCYTIC NEVI OF SCALP AND NECK 12/13/[address] active 14 METHICILLIN SUSCEPTIBLE STAPHYLOCOCCUS AUREUS INFECTION THE CAUSE OF DISEASES CLASSIFIED ELSEWHERE 12/13/[address] active 15 NEED FOR ASSISTANCE WITH PERSONAL CARE 12/13/[address] active 16 NON-ST ELEVATION (NSTEMI) MYOCARDIAL INFARCTION 12/13/[address] active 17 NONRHEUMATIC AORTIC (VALVE) STENOSIS 12/13/[address] active 18 NONRHEUMATIC MITRAL (VALVE) INSUFFICIENCY 12/13/[address] active 19 OTHER FATIGUE 12/13/[address] active 20 PAROXYSMAL ATRIAL FIBRILLATION 12/13/[address] active 21 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 12/13/[address] active 22 TYPE 2 DIABETES MELLITUS WITH DIABETIC CHRONIC KIDNEY DISEASE 12/13/[address] active 23 UNSPECIFIED SEVERE PROTEIN-CALORIE MALNUTRITION 12/13/[address] active Reason for Referral No Reasons for Referral Entered Social History Social History Observation Description Start Date End Date Code Code System Current Smoking Status Tobacco smoking consumption unknown 004654904 SNOMED CT Sex Assigned At Male 1935 05566-3 [facility] Gender Identity Sexual Orientation Vital Signs Code Code System Vitals Name Values and Units Timing Information 2339-0 [facility] Blood Sugar Cqwob=939.0 Units=mg/dL 01/05/2024 9279-1 [facility] Respiratory Rate Value=18.0 Units=/m in 01/05/2024 8462-4 [facility] Blood Pressure-Diastolic Value=79 Un its=mmHg 01/05/2024 8480-6 [facility] Blood Pressure-Systolic Mmxbd=685 Un its=mmHg 01/05/2024 8310-5 [facility] Body Temperature Value=97.0 Units= F 01/05/2024 8867-4 [facility] Heart rate Value=78.0 Units=/min 01/2024 15493-5 [facility] O2 % BldC Oximetry Value=95.0 Units= % 01/05/2024 01902-9 [facility] Weight Dedkg=032.0 Units=Lbs 01/2024 47422-5 [facility] Pain Level Value=1.0 12/30/2023 8302-2 [facility] Height Value=74.0 Units=Inches 12/13/2023
--- NOTE | 2025-08-27 12:24 | ED.GENADUL1 ---
HPI HPI - General Adult General Chief complaint: Extremity Injury, Lower Stated complaint: HIP PAIN - FALL 08/27 Time Seen by Provider: 08/27/25 12:11 History of Present Illness HPI narrative: 89-year-old male presents for left hip pain. He tripped over the threshold and fell and landed on the hip. He states he did not hit his head. No other injury was sustained. He was brought here by his family. The pain is worse when he moves his leg and it is moderate. Related Data Home Medications ?Medication ?Instructions ?Recorded ?Confirmed rosuvastatin 20 mg tablet 20 mg PO DAILY 11/15/23 08/27/25 amiodarone 200 mg tablet 200 mg PO DAILY 08/27/25 08/27/25 bumetanide 1 mg tablet 2 mg PO DAILY 08/27/25 08/27/25 ferrous sulfate 325 mg (65 mg 325 mg PO DAILY 08/27/25 08/27/25 iron) tablet (FeroSul) folic acid 1 mg tablet 1 mg PO DAILY 08/27/25 08/27/25 hydralazine 10 mg tablet 10 mg PO DAILY 08/27/25 08/27/25 insulin glargine 100 unit/mL (3 6 unit subcut .QHS 08/27/25 08/27/25 mL) subcutaneous pen (Lantus Solostar U-100 Insulin) isosorbide dinitrate 10 mg tablet 10 mg PO DAILY 08/27/25 08/27/25 levothyroxine 25 mcg tablet 25 mcg PO QAM 08/27/25 08/27/25 metoprolol succinate 25 mg 25 mg PO DAILY 08/27/25 08/27/25 tablet,extended release 24 hr sodium bicarbonate 650 mg tablet 650 mg PO DAILY 08/27/25 08/27/25 tamsulosin 0.4 mg capsule 0.4 mg PO DAILY 08/27/25 08/27/25 Allergies Allergy/AdvReac Type Severity Reaction Status Date / Time No Known Drug Allergies Allergy Verified 08/27/25 12:28 Review of Systems ROS Narrative A ten point review of systems is negative except as noted above. [facility] Medical History Elevated cholesterol ?E78.00 - Pure hypercholesterolemia, unspecified (ICD-10) Diabetes ?E11.9 - Type 2 diabetes mellitus without complications (ICD-10) Social History Highest level of school completed/degree received: 12th grade, no diploma Little interest or pleasure in doing things: not at all Feeling down, depressed, or hopeless: not at all Exam Narrative Exam Narrative: Nurses note and vital signs reviewed General:The patient appears uncomfortable but in no acute distress Skin:Warm, dry, no pallor noted.There is no rash noted. Head:Normocephalic, atraumatic Eye: Normal conjunctiva, no drainage Ears, Nose, Mouth, and Throat: oral mucosa is moist. Nares patent. Cardiovascular: Not tachycardic Respiratory:Patient is in no distress, no accessory muscle use, lungs are clear to auscultation, no wheezing, rales or rhonchi GI: Soft and nontender Musculoskeletal: Left leg is slightly shortened and slightly externally rotated Neurological: Awake and alert and oriented Psychiatric:Cooperative Constitutional Vital Signs, click to edit/add: Last Vital Signs Temp 97.6 F 08/27/25 12:25 Pulse 71 08/27/25 12:25 Resp 20 08/27/25 12:25 BP 125/52 08/27/25 12:25 Pulse Ox 94 L 08/27/25 12:25 O2 Del Method Room Air 08/27/25 12:25 Course Vital Signs Vital signs: Vital Signs Pulse Rate 69 08/27/25 12:20 Temperature 97.6 F 08/27/25 12:25 Pulse Rate 71 08/27/25 12:25 Respiratory Rate 20 08/27/25 12:25 Blood Pressure 125/52 08/27/25 12:25 Pulse Oximetry 94 L 08/27/25 12:25 Oxygen Delivery Method Room Air 08/27/25 12:25 Medical Decision Making MDM Narrative Medical decision making narrative: The patient has a left hip fracture. He is requesting transfer to [facility]. I have spoken to Dr. Lance who agrees with the transfer and I have spoken to Dr. Esparza, hospitalist, who also accepts the patient. He is stable and agreeable for transfer. Differential Diagnosis Differential Diagnosis: Contusion, fracture Lab Data Lab results reviewed: Yes I reviewed the patient's lab results Labs: Lab Results 08/27/25 Range/Units 12:35 WBC 13.7 H (4.0-11.0) 10^3/uL RBC 4.42 L (4.70-6.10) 10^6/uL Hgb 11.2 L (14.0-18.0) g/dL Hct 35.7 L (42.0-54.0) % MCV 80.8 (80.0-94.0) fL MCH 25.3 L (25.9-34.0) pg MCHC 31.4 (29.9-35.2) g/dL RDW 16.9 H (11.0-15.0) % Plt Count 251 (150-450) 10^3/uL MPV 11.0 (9.5-13.5) fL Neut % (Auto) 84.7 H (43.0-75.0) % Lymph % (Auto) 8.8 L (20.5-60.0) % [place] % (Auto) 5.5 (1.7-12.0) % Eos % (Auto) 0.1 L (0.9-7.0) % Baso % (Auto) 0.3 (0.2-2.0) % Neut # (Auto) 11.6 H (1.4-6.5) 10^3/uL Lymph # (Auto) 1.2 (1.2-3.8) 10^3/uL [place] # (Auto) 0.8 (0.3-0.8) 10^3/uL Eos # (Auto) 0.0 (0.0-0.7) 10^3/uL Baso # (Auto) 0.0 (0.0-0.1) 10^3/uL Abs Immat Gran (auto) 0.08 H (0.00-0.03) 10^3/uL Imm/Tot Granulo (auto) 0.6 H (0.0-0.5) % Sodium 137 (136-145) mmol/L Potassium 5.0 (3.5-5.1) mmol/L Chloride 104 (98-107) mmol/L Carbon Dioxide 26.0 (21.0-32.0) mmol/L Anion Gap 12.0 BUN 40.0 H (7.0-18.0) mg/dL Creatinine 2.64 H (0.70-1.30) mg/dL Est GFR ( Amer) 28 L (>=60 mL/min/1.73m^2) Est GFR (Non-Af Amer) 23 L (>=60 mL/min/1.73m^2) BUN/Creatinine Ratio 15.2 Glucose 187 H (74-106) mg/dL Calcium 9.0 (8.5-10.1) mg/dL Imaging Data Left hip x-ray: My impression: Hip fracture Radiologist's impression: ITS Impressions Hip/Pelvis X-Ray 08/27/25 12:23 IMPRESSION: Comminuted fracture intratrochanteric region left hip. Impression dictated by: Johnny Everett Jr., D.O. 08/27/2025 1:07 PM Dictation Location: [place] [address] Electronically authenticated by: [id number] Y Date: 08/27/2025 13:07 ECG Data Attestation: I personally reviewed and interpreted this ECG as follows: (EKG on my interpretation shows sinus rhythm with rate of 68 and no acute change) Discharge Plan Discharge Chief Complaint: Extremity Injury, Lower Clinical Impression: Closed left hip fracture Patient Disposition: [facility] Time of Disposition Decision: 12:51 Discharge Location: [facility] Condition: Fair Mode of Transportation: EMS
--- OUTSIDE RECORDS SUMMARY | 2025-08-27 12:24 | XMS_ITS | Clinical Summary ---
Author Organization [facility] Healthcare Address [address] [place] [address] Care Team Providers Care Electric Motorman Name Role Phone Ching Quintanilla MD Primary Care Provider [phone] Linette Cueva [employer] Unavailable [phone] Kami Lopze RN Unavailable [phone] Shana Betancourt [employer]PER[employer] Unavailable [phone] Allergies Active AllergyReactionsCriticalityNoted CuitWufhlwlcQdqkdiqtGkopo19/02/2024 epistaxis Medications MedicationSigDispense QuantityRefillsLast FilledStart DateEnd DateStatus aspirin 81 MG EC tablet Take 81 mg by mouth in the morning.Active glucose blood (Accu-Chek Nevaeh Plus) test strip Indications:Type 2 diabetes mellitus with hyperglycemia, without long-term current use of insulin (HCC)1 each by Other route in the morning and 1 each before bedtime. Use as instructed. 200 each ctive bumetanide (Bumex) 1 MG tablet Indications:Hypertensive chronic kidney disease with stage 1 through stage 4 chronic kidney disease, or unspecified chronic kidney diseaseTake 1 tablet (1 mg) by mouth Daily07/05/2024ctive tamsulosin (Flomax) 0.4 MG 24 hr capsule Take 0.4 mg by mouth in the morning.08/15/2024ctive amiodarone (Pacerone) 200 MG tablet Indications:Paroxysmal atrial fibrillation (HCC)TAKE 1 TABLET EVERY DAY 90 tablet 5Active sodium bicarbonate 650 MG tablet Indications:CKD (chronic kidney disease) stage 5, GFR less than 15 ml/min (HCC) TAKE 1 TABLET TWICE DAILY 180 tablet 5Active rosuvastatin (Crestor) 20 MG tablet Indications:Coronary artery disease involving [place] coronary artery of [place] heart without angina pectorisTake 1 tablet (20 mg) by mouth Daily 90 tablet 5Active ferrous sulfate (FeroSul) 325 (65 Fe) MG tablet Indications:Iron deficiency anemia, unspecified iron deficiency anemia typeTake 1 tablet (325 mg) by mouth in the morning. Take with meals. 180 tablet 5Active pen needle 32G x 5 mm [facility] Indications:Type 2 diabetes mellitus with hyperglycemia, without long-term current use of insulin (HCC)Use as instructed 100 each /6Active hydrALAZINE (Apresoline) 10 MG tablet Indications:Hypertensive chronic kidney disease with stage 1 through stage 4 chronic kidney disease, or unspecified chronic kidney diseaseTake 1 tablet (10 mg) by mouth in the morning and 1 tablet (10 mg) in the evening and 1 tablet (10 mg) before bedtime. 270 tablet 5Active folic acid (Folvite) 1 MG tablet Indications:Anemia, unspecified typeTake 1 tablet (1,000 mcg) by mouth in the morning. 90 tablet 5Active metoprolol succinate XL (Toprol-XL) 25 MG 24 hr tablet Indications:Paroxysmal atrial fibrillation (HCC)Take 0.5 tablets (12.5 mg) by mouth Daily 45 tablet 5Active insulin glargine (Lantus SoloStar) 100 UNIT/ML pen Indications:Type 2 diabetes mellitus with hyperglycemia, without long-term current use of insulin ([facility])Inject 6 Units under the skin at bedtime 15 mL 5Active levothyroxine (Synthroid) 25 MCG tablet Indications:Acquired hypothyroidismTake 1 tablet (25 mcg) by mouth Daily Take on an empty stomach 90 tablet 5Active isosorbide dinitrate (Isordil) 10 MG tablet Indications:Hypertensive chronic kidney disease with stage 1 through stage 4 chronic kidney disease, or unspecified chronic kidney diseaseTake 1 tablet (10 mg) by mouth in the morning and 1 tablet (10 mg) in the evening and 1 tablet (10 mg) before bedtime. 270 tablet 5Active isosorbide dinitrate (Isordil) 10 MG tablet Indications:Hypertensive chronic kidney disease with stage 1 through stage 4 chronic kidney disease, or unspecified chronic kidney diseaseTake 1 tablet (10 mg) by mouth in the morning and 1 tablet (10 mg) in the evening and 1 tablet (10 mg) before bedtime. 270 tablet Discontinued(Reorder) Active Problems ProblemNoted DateDiagnosed DateDifficulty in walking, not elsewhere classified 07/04/20258886Luistmfcsa93/03/2025hronic systolic heart gmtgnfd4907/01/2024 Assessment & Plan (07/05/2025 8:53 AM EDT): - He has experienced leg swelling on a couple of occasions over the past year, which required extradoses of Bumex (bumetanide) at noon. The swelling resolved after a week of treatment each time. - He is advised to continue monitoring for swelling and use Bumex as needed. - He limits sodium intake and monitors his fluids. No recent weight gain. Stage 4 chronic kidney qjhnweg1007/01/2024 Assessment & Plan (07/05/2025 8:53 AM EDT): -followed by nephrology regularly. Type 2 diabetes mellitus with stage 4 chronic kidney disease, with long-term current use of dnutymg9807/01/2024Encounter for palliative care in home, non-btdfcmg3101/26/2024KD (chronic kidney disease) stage 5, GFR less than 15 ml/min01/26/2024nemia due to chronic kidney mnximlp6612/13/2023therosclerosis of coronary artery without angina qmeorodj73/13/2024Hypertensive heart and renal disease with (congestive) heart dgthnga6512/13/20230502Ncsgxhgfnid18/13/2024 Assessment & Plan (07/05/2025 8:53 AM EDT): -check CMP Iron deficiency fgirai7012/13/2023 Assessment & Plan (07/05/2025 8:53 AM EDT): Orders: Iron + transferrin + TIBC; Future Ferritin; Future -check labs intermediate accountant current use of oemhikn9112/13/2023Metabolic lpoxgzav10/13/2024leural icwmqg3612/13/2023Severe protein-calorie malnutrition (Liu: less than 60% of standard weight) ([facility])12/13/2023Hypertensive chronic kidney disease with stage 1 through stage 4 chronic kidney disease, or unspecified chronic kidney vjhymtm6812/12/2023 Assessment & Plan (07/05/2025 8:53 AM EDT): -tight control of BP and blood sugars. He is followed by cardiology and nephrology regularly. Endocarditis of mitral valve11/23/2023 Overview (01/15/2024): Last Assessment & Plan: Remains on IV antibiotics per ID, f/U as scheduled Paroxysmal atrial /16/2024 Overview (01/15/2024): Last Assessment & Plan: Rate controlled today, Eliquis anticoagulation was DC'd as inpt r/t epistaxis and pt states he doesnot want to resume any anticoagulation Continue toprol Assessment & Plan (07/05/2025 8:53 AM EDT): - He is no longer on Eliquis (apixaban) due to a previous adverse reaction involving severe nosebleeds. He understands the risks of strokes and declines anticoagulation. He is currently on amiodarone, which may affect his thyroid function. Thyroid function will be assessed through blood work today. Severe mitral valve ceszudfkjqvlx01/16/2024 Overview (01/15/2024): Last Assessment & Plan: Currently pt does not want any surgery or invasive procedures Will continue to monitor Assessment & Plan (07/05/2025 8:53 AM EDT): -followed by cardiology, he is not interested in any invasive procedures at this time. Coronary artery disease involving [place] coronary artery of [place] heart without angina xmpkcpqu76/27/2023 Assessment & Plan (07/05/2025 8:53 AM EDT): -on asa, statin, and beta heather Mixed skwzecsomxvyju38/27/2023 Assessment & Plan (07/05/2025 8:53 AM EDT): -on a statin Severe aortic valve iiwzyqth22/27/2023 Assessment & Plan (07/05/2025 8:53 AM EDT): -followed by cardiology, he refuses invasive procedures at this time. Obesity (BMI 30-39.9)06/28/2023Other chronic pain06/28/2023Sensorineural hearing loss (SNHL) of both ears06/28/2023Type 2 diabetes mellitus with hyperglycemia, without long-term current use of uonefnf1406/28/2023 Assessment & Plan (07/05/2025 8:53 AM EDT): - Blood glucose levels are typically between 115-125 mg/dL. -Diabetic protocols reviewed. Discussed and updated current management plan. Addressed barriers to care, diet, exercise plan and blood sugar testing. Education provided for medications. Goal A1C <7 and BP <130/80 for suboptimally controlled diabetes. I have encouraged patient to check feet regularly and to see ophthomololgist annually. I have discussed the need for regular testing and follow up. We will recheck an A1C every 3 months and microalbumin yearly. Discussed complications which could include blindness, heart disease and kidney disease. Wears /27/2023Wears hearing aid in both ears06/28/2023Hx of sebaceous cyst06/28/2023Morbid hojgsmf9906/28/2023 Resolved Problems ProblemNoted DateDiagnosed DateResolved DateAcute kidney oqowno6401/25/2024 07/05/2024ltered mental wxxepj13cute renal jteredp8411/26/2023 07/05/2024Gram-positive bmmiucreqk52cute on chronic systolic heart failure, NYHA class / Overview (01/15/2024): Last Assessment & Plan: [facility] II currently euvolemic without exacerbation Continue GDMT- lipitor, toprol and Diuretic therapy- bumex Limited GDMT r/t CKD and hypotension Monitor daily weights, I&O, fluid restriction 1.5-2L/day, renal function and electrolytes- please maintain K+>4 and Mg > 2 Mwuygagc44/2114Qhzjjpmbxhj05/27/202309/ Encounters DateTypeDepartmentCare DdqdCajtcuzdbvi41/25/2025Refill [facility] [address] [place] [address] Ching Quintanilla MD Hypertensive chronic kidney disease with stage 1 through stage 4 chronic kidney disease, or unspecified chronic kidney diwptqk3008/22/2025 8:30 AM ESTOffice Visit [facility] [address] [place] [address] Shana Betancourt NP Encounter for palliative care in home, non-hospice (Primary Dx); SOB (shortness of breath); Fatigue, unspecified type; Bilateral lower extremity edema; Chronic systolic heart failure (HCC); Coronary artery disease involving [place] coronary artery of [place] heart without angina pectoris; Stage 4 chronic kidney disease (HCC)08/20/2025Patient Outreach [facility] [address] [place] [address] Kami Lopez RN 07/24/2025Patient Outreach [facility] [address] [place] [address] Kami Lopez RN 07/16/2025Patient Outreach [facility] [address] [place] [address] Kami Lopez, FELISA 07/07/2025Results Follow-Up [facility] [address] [place] [address] Linette Cueva NP Microalbumin / creatinine, urine ratio, Comprehensive metabolic panel, CBC and differential, Additional followed-up results: 8:30 AM EDTOffice Visit [facility] [address] [place] [phone] Linette Cueva NP Encounter for wellness examination (Primary Dx); Coronary artery disease involving [place] coronary artery of [place] heart without angina pectoris; Mixed hyperlipidemia; Severe aortic valve stenosis; Type 2 diabetes mellitus with stage 4 chronic kidney disease, with long-term current use of insulin(HCC); Chronic systolic heart failure (HCC); Stage 4 chronic kidney disease (HCC); Severe mitral valve regurgitation; Paroxysmal atrial fibrillation (HCC); Hypokalemia; Anemia of chronic disease; Screening PSA (prostate specific antigen); Encounter for immunization; Hypertensive chronic kidney disease with stage 1 through stage 4 chronic kidney disease, or unspecified chronic kidney disease; Primary hypertension; Iron deficiency anemia, unspecified iron deficiency anemia type; Weight loss; History of skin cancer; Type 2 diabetes mellitus with other specified complication (HCC); Type 2 diabetes mellitus with other circulatory complications (HCC); Bilateral lower extremity edema; Benign prostatic hyperplasia without lower urinary tract eybbcsib38/03/2025 Bamboo flowsheet [facility] [address] [place] [phone] Linette Cueva NP 07/04/20255178Nvleij40/25/2025Refill [place] [address] [place] [phone] Ching Quintanilla MD Type 2 diabetes mellitus with hyperglycemia, without long-term current use of insulin (HCC)06/20/2025Patient Outreach [facility] [address] [place] [address] Kami Lopez RN 06/06/2025 8:30 AM EDTOffice Visit [facility] [address] [place] [address] Shana Betancourt NP Encounter for palliative care in home, non-hospice (Primary Dx); SOB (shortness of breath) on exertion; Bibasilar crackles; Chronic systolic heart failure (HCC); Severe aortic valve stenosis; Severe mitral valve regurgitation; CKD (chronic kidney disease) stage 5, GFR less than 15 ml/min ([facility]); Coronary artery disease involving [place] coronary artery of [place] heart without angina pectorisfrom Last 3 Months Immunizations ImmunizationAdministration DatesNext DueABRYSVO - Respiratory syncytial virus (RSV), vaccine, bivalent, protein subunit RSV prefusion F, diluent reconstituted, 0.5 mL, PF12/18/2024Influenza, High Dose Seasonal, Preservative Free07/04/2025,07/01/2024Influenza, High-dose Seasonal, Quadrivalent, Preservative Free06/28/2023,06/28/2022,06/23/2021,06/22/2020,06/20/2019, 08/20/2018Influenza, Ehfvrnfrivn89/01/2022,1Pneumococcal Conjugate PCV 13110/20/2017Pneumococcal Polysaccharide IDBG8655,10/02/2005 Family History Medical HistoryRelationNameCommentsAA accidentFatherStomach cancerPaternal GrandfatherAA AccidentSisterRelationNameStatusCommentsFatherDeceasedMother DeceasedPaternal GrandfatherDeceasedSister Social History Tobacco UseTypesPacks/DayYears UsedDateSmoking Tobacco: FormerCigarettes Smokeless Tobacco: Never Comments:15+ years since t smoked Alcohol UseStandard Drinks/WeekCommentsNot Currently0 (1 [...] InformationValueDate RecordedSex Assigned at BirthNot on fileLegal JcsVzgi6812/14/2022 7:36 PM EDTGender IdentityNot on fileSexual OrientationNot on file Last Filed Vital Signs Vital SignReadingTime TakenCommentsBlood Mkkidqpp738/7811/ 7:00 AM EST Wgfra607708/22/2025 7:00 AM YGSJsfkluukfij61.6 ??C (97.9 ??F)08/22/2025 7:00 AM ESTRespiratory Lsgv012806/28/2023 8:25 AM EDTOxygen Wfnegmjiak41%08/22/2025 7:00 AM ESTInhaled Oxygen Concentration--Yfsspi82 kg (216 lb)07/04/2025 8:31 AM EDT Yaaksr701.7 cm (6' 1.5 )07/30/2024 2:19 PM EDTBody Mass Index28.111 2:19 PM EDT Plan of Treatment DateTypeDepartmentCare Team (Latest Contact Info)Rkzwwdqzhiw75/13/2026 8:30 AM ESTOffice Visit [facility] [address] [place] [address] Shana Betancourt, [employer] [address] [place] [address] Health MaintenanceDue DateLast DoneCommentsCOVID-19 Vaccine ( season) /09/2021, 1Diabetes: Hemoglobin A1C/11/2024, 07/01/2024, 01/15/2024, Additional history existsDiabetes: Urine Protein Hlzbdmtxo46, 06/23/2021, 10/23/2019, Additional history exists Diabetes: Retinopathy Uhheutjjl09/, 12/27/2023, 08/20/2018 Pneumococcal Vaccine: 65+ XjptmBiaxtxzej15/27/2022, 08/20/2018, 10/02/2005 Influenza PkhgitvHwzijjnub29/03/2025, 07/01/2024, 06/28/2023, Additional history exists Procedures Procedure NamePriorityDate/TimeAssociated DiagnosisCommentsMICROALBUMIN / CREATININE URINE BISEWTmbjggc83/03/2025 9:39 AM EDT Encounter for wellness examination Type 2 diabetes mellitus with stage 4 chronic kidney disease, with long-term current use of insulin(HCC) T4, OEGMDxxyipq57/03/2025 9:15 AM EDT IRON + TRANSFERRIN + KYNKDgylkgp55/03/2025 9:15 AM EDT Iron deficiency anemia, unspecified iron deficiency anemia type HEMOGLOBIN D3HSccsrqg04/03/2025 9:15 AM EDT Encounter for wellness examination Type 2 diabetes mellitus with stage 4 chronic kidney disease, with long-term current use of insulin(HCC) PSA, AUJTTYioanhd39/03/2025 9:15 AM EDT Encounter for wellness examination TSH W/REFLEX TO KA1Hpxmxbi30/03/2025 9:15 AM EDT Encounter for wellness examination LIPID RBGMGBrkfruv73/03/2025 9:15 AM EDT Encounter for wellness examination Coronary artery disease involving [place] coronary artery of [place] heart without angina pectoris Mixed hyperlipidemia Type 2 diabetes mellitus with stage 4 chronic kidney disease, with long-term current use of insulin(HCC) Primary hypertension CBC (INCLUDES DIFF/PLT)Gxydnjv7007/04/2025 9:15 AM EDT Encounter for wellness examination Stage 4 chronic kidney disease (HCC) Paroxysmal atrial fibrillation (HCC) Anemia of chronic disease COMPREHENSIVE METABOLIC PXWZZJqoiqtu79/03/2025 9:15 AM EDT Encounter for wellness examination Type 2 diabetes mellitus with stage 4 chronic kidney disease, with long-term current use of insulin(HCC) Stage 4 chronic kidney disease (HCC) Primary hypertension COLOR FUNDUS PHOTOGRAPHY - OU - BOTH WXFRTcakzzf64/19/2018 12:00 PM EST from Last 3 Months or Most Recently Relevant to Health Maintenance Results * Microalbumin / creatinine, urine ratio (07/04/2025 9:39 AM EDT)ComponentValue Ref RangeTest MethodAnalysis TimePerformed AtPathologist SignatureCREATININE, RANDOM IWXIM88319 - 320 mg/dLQUESTALBUMIN, URINE2.4See Note: mg/dLQUEST Comment: Reference Range: Reference Range Not established ALBUMIN/CREATININE RATIO, RANDOM URINE14<30 mg/g creatQUESTComment: The ADA defines abnormalities in albumin excretion as follows: Albuminuria Category ?Result (mg/g creatinine) Normal to Mildly increased <30 Moderately increased ? 30-299 Severely increased > OR = 300 The ADA recommends that at least two of three specimens collected within a 3-6 month period be abnormal before considering a patient to be within a diagnostic category. Specimen (Source)Anatomical Location / LateralityCollection Method / Volume Collection TimeReceived TimeUrineUrine specimen obtained by clean catch procedure / Tyklwlm6807/04/2025 9:39 AM EDT1 3:05 PM EDT Narrative Resulting Agency Comment Performing Organization Information ?Site ID: QPT ?Name: Tweet Category [facility] ?Address: [address] [place] [phone] ?Director: Ed Campo MD Authorizing ProviderResult TypeResult StatusSabobby Cueva [facility] URINE ORDERABLES Final ResultPerforming OrganizationAddressCity/State/[facility] CodePhone Number [facility] * (ABNORMAL) Iron + transferrin + TIBC (07/04/2025 9:15 AM EDT)ComponentValueRef RangeTest MethodAnalysis TimePerformed AtPathologist SignatureIRON, TOTAL39(L) 50 - 180 mcg/dLQUESTIRON BINDING PJTTMCFC650187 - 425 mcg/dL (calc)QUEST% REVZUXUYBT99(L)20 - 48 % (calc)URDRSPFKHZDMZ06246 - 380 ng/mLQUESTSpecimen (Source)Anatomical Location / LateralityCollection Method / VolumeCollection TimeReceived TimeBloodVenous blood specimen / Aixczmt3707/04/2025 9:15 AM EDT 07/04/2025 3:03 PM EDT Narrative [facility] - 07/08/2025 5:11 AM EDT MULTIPLE COLLECTION TIMES FOR SAME TEST TYPE. Resulting Agency Comment Performing Organization Information ?Site ID: QPT ?Name: Tweet Category [facility] ?Address: [address] [place] [address], [address] [place] [address] ?Director: Ed Campo MD Authorizing ProviderResult TypeResult StatusSaselect medical [facility]ymarveter[facility] [place] [facility]ATCH[facility] BLOOD ORDERABLES Final ResultPerforming OrganizationAddressty/State/ZIP CodePhone Number [facility] * (ABNORMAL) TSH W/REFLEX TO FT4 (07/04/2025 9:15 AM EDT)ComponentValueRef Range Test MethodAnalysis TimePerformed AtPathologist SignatureTSH W/REFLEX TO FT4 26.17(H)0.40 - 4.50 mIU/LQUESTSpecimen (Source)Anatomical Location / LateralityCollection Method / VolumeCollection TimeReceived Time07/04/2025 9:15 AM EDT1 3:03 PM EDT Narrative [facility] - 07/08/2025 5:11 AM EDT MULTIPLE COLLECTION TIMES FOR SAME TEST TYPE. Resulting Agency Comment Performing Organization Information ?Site ID: QPT ?Name: [facility] ?Address: [address] [place] [address], [address] [place] [address] ?Director: Ed Campo MD Authorizing ProviderResult TypeResult StatusSaselect [facility] BLOOD ORDERABLES Final ResultPerforming OrganizationAddressCity/State/ZIP CodePhone Number [facility] * (ABNORMAL) CBC and differential (07/04/2025 9:15 AM EDT)ComponentValueRef RangeTest MethodAnalysis TimePerformed AtPathologist SignatureWHITE BLOOD CELL COUNT7.53.8 - 10.8 Thousand/uLQUESTRED BLOOD CELL COUNT4.374.20 - 5.80 Million/pAEUHJMPLXGBZROEQ89.8(L)13.2 - 17.1 g/jFUFMKCSTXWYGMPAS98.7(L)38.5 - 50.0 %DJOZCDWH74.4(L)80.0 - 100.0 lQPLIMAKMG18.7(L)27.0 - 33.0 xrOKAWUGIPF04.1 (L)32.0 - 36.0 g/dLQUESTComment: For adults, a slight decrease in the calculated MCHC value (in the range of 30 to 32 g/dL) is most likely not clinically significant; however, it should be interpreted with caution in correlation with other red cell parameters and the patient's clinical condition. RDW16.3(H)11.0 - 15.0 %QUESTPLATELET DLJXU014991 - 400 Thousand/wJLURIZYMT31.5 7.5 - 12.5 fLQUESTABSOLUTE NEUTROPHILS5,5131,500 - 7,800 cells/uLQUESTABSOLUTE LYMPHOCYTES1,464869 - 3,900 cells/uLQUESTABSOLUTE FGMDBALMX042084 - 950 cells/uL QUESTABSOLUTE FYNNJXISUVA50297 - 500 cells/uLQUESTABSOLUTE DBMWGSXUM597 - 200 cells/yJFEZUXXKOQILUXSXF46.5%NACKKNBADVKQJJJB03.7%QUESTMONOCYTES7.8%QUEST EOSINOPHILS2.7%QUESTBASOPHILS0.3%QUESTSpecimen (Source)Anatomical Location / LateralityCollection Method / VolumeCollection TimeReceived TimeBloodVenous blood specimen / Whwynqb5107/04/2025 9:15 AM EDT1 3:03 PM EDT Narrative [facility] - 07/08/2025 5:11 AM EDT MULTIPLE COLLECTION TIMES FOR SAME TEST TYPE. Resulting Agency Comment Performing Organization Information ?Site ID: QTW ?Name: [facility] ?Address: [address] [place] [phone] ?Director: Goldie Ibarra Authorizing ProviderResult TypeResult StatusSaKaleida Health BLOOD ORDERABLES Final ResultPerforming OrganizationAddressCity/State/ZIP CodePhone Number [facility] * T4, free (07/04/2025 9:15 AM EDT)ComponentValueRef RangeTest MethodAnalysis TimePerformed AtPathologist SignatureT4, FREE0.90.8 - 1.8 ng/dLQUESTSpecimen (Source)Anatomical Location / LateralityCollection Method / VolumeCollection TimeReceived Time07/04/2025 9:15 AM EDT1 3:03 PM EDT Narrative [facility] - 07/08/2025 5:11 AM EDT MULTIPLE COLLECTION TIMES FOR SAME TEST TYPE. Resulting Agency Comment Performing Organization Information ?Site ID: QPT ?Name: Tweet Category [facility] ?Address: [address] [place] [address], [address] [place] [phone] ?Director: Ed Campo MD Authorizing ProviderResult TypeResult StatusSamiguel Blackmonveterans health administration [facility] [place]PLAB BLOOD ORDERABLES Final ResultPerforming OrganizationAddressCity/State/ZIP CodePhone Number [facility] * (ABNORMAL) PSA (07/04/2025 9:15 AM EDT)ComponentValueRef RangeTest Method Analysis TimePerformed AtPathologist SignaturePSA, TOTAL15.23(H)< OR = 4.00 ng/mLQUESTComment: The total PSA value from this assay system is standardized against the WHO standard. The test result will be approximately 20% lower when compared to the equimolar-standardized total PSA (Inge Allen). Comparison of serial PSA results should be interpreted with this fact in mind. This test was performed using the Siemens chemiluminescent method. Values obtained from different assay methods cannot be used interchangeably. PSA levels, regardless of value, should not be interpreted as absolute evidence of the presence or absence of disease. Specimen (Source)Anatomical Location / LateralityCollection Method / Volume Collection TimeReceived TimeBloodVenous blood specimen / Uukasun9107/04/2025 9:15 AM EDT1 3:03 PM EDT Narrative [facility] - 07/08/2025 5:11 AM EDT MULTIPLE COLLECTION TIMES FOR SAME TEST TYPE. Resulting Agency Comment Performing Organization Information ?Site ID: QPT ?Name: Tweet Category [facility] ?Address: [facility] [address], [address] [place] [phone] ?Director: Ed Campo MD Authorizing ProviderResult TypeResult StatusSaselect [facility]arveter[facility] health [facility] [place] NPLAB BLOOD ORDERABLES Final ResultPerforming OrganizationAddressCity/State/ZIP CodePhone Number [facility] * (ABNORMAL) Hemoglobin A1c (07/04/2025 9:15 AM EDT)ComponentValueRef RangeTest MethodAnalysis TimePerformed AtPathologist SignatureHemoglobin A1C6.7(H)<5.7 % QUESTComment: For someone without known diabetes, a hemoglobin A1c value of 6.5% or greater indicates that they may have diabetes and this should be confirmed with a follow-up test. For someone with known diabetes, a value <7% indicates that their diabetes is well controlled and a value greater than or equal to 7% indicates suboptimal control. A1c targets should be individualized based on duration of diabetes, age, comorbid conditions, and other considerations. Currently, no consensus exists regarding use of hemoglobin A1c for diagnosis of diabetes for children. Specimen (Source)Anatomical Location / LateralityCollection Method / Volume Collection TimeReceived TimeBloodVenous blood specimen / Guvjuov3007/04/2025 9:15 AM EDT1 3:03 PM EDT Narrative QUEST - 07/08/2025 5:11 AM EDT MULTIPLE COLLECTION TIMES FOR SAME TEST TYPE. Resulting Agency Comment Performing Organization Information ?Site ID: QPT ?Name: Tweet Category [facility] ?Address: [address] [place] [phone] ?Director: Ed Campo MD Authorizing ProviderResult TypeResult StatusSa Hammad [facility] BLOOD ORDERABLES Final ResultPerforming OrganizationAddressCity/State/ZIP CodePhone Number QUEST * (ABNORMAL) Lipid panel (07/04/2025 9:15 AM EDT)ComponentValueRef RangeTest MethodAnalysis TimePerformed AtPathologist SignatureCHOLESTEROL, FZOHF328<200 mg/dLQUESTHDL HMJMCRDSCAJ51(L)> OR = 40 mg/cZNUCGDPEUOEFYCRCVXU073<150 mg/dL QUESTLDL JJFWPZMNCEF65lh/dL (calc)QUESTComment: Reference range: <100 Desirable range <100 mg/dL for primary prevention; <70 mg/dL for patients with CHD or diabetic patients with > or = 2 CHD risk factors. LDL-C is now calculated using the Cruz-Erick calculation, which is a validated novel method providing better accuracy than the Friedewald equation in the estimation of LDL-C. Cruz SS et al. HARISH. 2013;310(19): 3684-6656 (http://education.[employer].com/faq/DNW811) CHOL/HDLC RATIO3.0<5.0 (calc)QUESTNON HDL VHNZLPLZDHL14<130 mg/dL (calc)QUEST Comment: For patients with diabetes plus 1 major ASCVD risk factor, treating to a non-HDL-C goal of <100 mg/dL (LDL-C of <70 mg/dL) is considered a therapeutic option. Specimen (Source)Anatomical Location / LateralityCollection Method / Volume Collection TimeReceived TimeBloodVenous blood specimen / Aonbatf5307/04/2025 9:15 AM EDT1 3:03 PM EDT Narrative QUEST - 07/08/2025 5:11 AM EDT MULTIPLE COLLECTION TIMES FOR SAME TEST TYPE. Resulting Agency Comment Performing Organization Information ?Site ID: QPT ?Name: Tweet Category [facility] ?Address: [address] [place] [address], [address] [place] [phone] ?Director: Ed Campo MD Authorizing ProviderResult TypeResult StatusSaramiguel Cueva NPJIM BLOOD ORDERABLES Final ResultPerforming OrganizationAddressCity/State/ZIP CodePhone Number QUEST * (ABNORMAL) Comprehensive metabolic panel (07/04/2025 9:15 AM EDT)Component ValueRef RangeTest MethodAnalysis TimePerformed AtPathologist SignatureGlucose 9365 - 99 mg/dLQUESTComment: ? Fasting reference interval BUN37(H)7 - 25 mg/dLQUESTCreatinine2.38(H)0.70 - 1.22 mg/jYUHIQNZIKW41(L)> OR = 60 mL/min/1.22s0SWWHWNVH/CREATININE YPBHB144 - 22 (calc)PHXWZVmrptn122788 - 146 mmol/LQUESTPotassium, Bld4.33.5 - 5.3 mmol/LTQKAWRqtrytys27790 - 110 mmol/LQUEST Carbon Uryjirl8807 - 32 mmol/LQUESTCalcium9.08.6 - 10.3 mg/dLQUESTPROTEIN, TOTAL 6.76.1 - 8.1 g/dLQUESTALBUMIN3.63.6 - 5.1 g/dLQUESTGLOBULIN3.11.9 - 3.7 g/dL (calc)QUESTALBUMIN/GLOBULIN RATIO1.21.0 - 2.5 (calc)QUESTBILIRUBIN, TOTAL0.60.2 - 1.2 mg/dLQUESTALKALINE FOSPYLOCIAT0376 - 144 U/WGHHEBWYQ4634 - 35 U/LQUESTALT 119 - 46 U/LQUESTSpecimen (Source)Anatomical Location / LateralityCollection Method / VolumeCollection TimeReceived TimeBloodVenous blood specimen / Unknown 07/04/2025 9:15 AM EDT1 3:03 PM EDT Narrative QUEST - 07/08/2025 5:11 AM EDT MULTIPLE COLLECTION TIMES FOR SAME TEST TYPE. Resulting Agency Comment Performing Organization Information ?Site ID: QTW ?Name: [facility] ?Address: [address] [place] [phone] ?Director: Goldie Ibarra Authorizing ProviderResult TypeResult StatusSabobby Cueva NPJIM BLOOD ORDERABLES Final ResultPerforming OrganizationAddressCity/State/ZIP CodePhone Number QUEST * Color Fundus Photography - OU - Both Eyes (08/20/2018 12:00 PM EST)Anatomical RegionLateralityModalityHeadFundus PhotographySpecimen (Source)Anatomical Location / LateralityCollection Method / VolumeCollection TimeReceived Time 08/20/2018 12:00 PM EST Narrative 08/20/2018 12:00 PM EST PERFORMED AT [facility] LOCATION:[id number] Procedure Note CONVERSION, GENERIC - 02/15/2023 PERFORMED AT [facility] LOCATION:[id number] Authorizing ProviderResult TypeResult StatusJonathan F DillerOPHTH PHOTOGRAPHY Final Result from Last 3 Months or Most Recently Relevant to Health Maintenance Insurance * Guarantor: Riki Grubbs TypeRelation to PatientDate of BirthPhone Billing AddressPersonal/XixnysHcxj1935 [address] [phone] Advance Directives TypeDate RecordedPatient RepresentativeExplanationAdvance Directives and Living Will02/07/2024 2:52 PMDNR comfort care signedAdvance Directives and Living Will 01/26/2024 1:13 [id number] 01-25 DNRCC * DNR (Latest Code Status on File) Date ActivatedDate InactivatedComments01/26/2024 1:11 PM Care Teams Team MemberRelationshipSpecialtyStart DateEnd Date Ching Quintanilla MD [address] [place], [place] [id number] PCP - GeneralFamily Medicine10/19/23 Shana Betancourt, ANAHI [address] [place] [address] PCP - Human/10/23 Linette Cueva NP [address] [place], [place] [id number] Nurse PractitionerFamily Medicine10/19/23 Kami Lopez, RN [address] [facility] [place] [address] Registered NurseFancly Medicine01/17/24
--- OUTSIDE RECORDS SUMMARY | 2025-08-27 12:24 | XMS_ITS | Clinical Summary ---
Author Organization [employer] Address [id number] [address] [place] [address] Care Team Providers Care Hat Measurer Name Role Phone Maury Aponte MD Primary Care Provider [phone] Allergies No known active allergies Medications MedicationSigDispense QuantityRefillsLast FilledStart DateEnd DateStatus rosuvastatin (CRESTOR) 20 mg tablet Take 1 tablet by mouth daily.07/15/2020Active metFORMIN (GLUCOPHAGE) 1000 mg tablet Take 1 tablet by mouth 2 (two) times a day.08/03/2020Active aspirin 81 mg Take 81 mg by mouth daily.Active Active Problems ProblemNoted DateDiagnosed DateClass 1 obesity in adult08/11/2020Hx of sebaceous cystSubstance abuse Overview (08/10/2020): TOBACCO ABUSE, IN REMISSION CAD (coronary artery disease)Mixed hyperlipidemiaObesityCervicalgiaBursitis Family History Medical HistoryRelationNameCommentsNo Known ProblemsFatherNo Known Problems MotherCancerSisterRelationNameStatusCommentsFatherOtherMotherDeceasedSister Social History Tobacco UseTypesPacks/DayYears UsedDateSmoking Tobacco: FormerCigarettes Smokeless Tobacco: NeverAlcohol UseStandard Drinks/WeekCommentsYes0 (1 standard drink = 0.6 oz pure alcohol)rareAUDIT-CAnswerDate RecordedQ1: How often do you have a drink containing alcohol?Never08/10/2020Average Number of DrinksNot on file08/10/2020Frequency of Binge DrinkingNot on file08/10/2020ChildcareAnswer Date PggzrvosJbejkkvveHbuxhyw90/21/2020EmploymentAnswerDate RecordedEmployment Bghzdgh1706/22/2020Purpose - LifeAnswerDate RecordedPurpose and direction in life Zzgomvv1411/12/2020ex and Gender InformationValueDate RecordedSex Assigned at BirthNot on fileLegal BojQvmn9405/07/2015 11:51 AM EDTGender IdentityNot on file Sexual OrientationNot on file Last Filed Vital Signs Vital SignReadingTime TakenCommentsBlood Dlpoxpwk502/7211 1:14 PM EST Fxfbm679808/11/2020 1:14 PM ESTTemperature--Respiratory Rate--Oxygen Saturation-- Inhaled Oxygen Concentration--Ihjbjv619.9 kg (260 lb)08/11/2020 1:14 PM EST Wbuqwi707 cm (6' 2 )08/11/2020 1:14 PM ESTBody Mass Index33.38110/11/2019 1:14 PM EST Plan of Treatment Health MaintenanceDue DateLast DoneCommentsDepression Sidhlpste73/21/1949Tobacco Gzyjtqjxz26/21/1949DTaP,Tdap and Td Vaccines (1 - Tdap)01/21/1956Zoster (Shingles) Vaccine (1 of 2)1987Fall Risk Qgkphxbqj57/21/2002RSV ( or age 60+ yrs) (1 - 1-dose 75+ series)01/21/2012Influenza Ouzzuyq0706/02/2025 Medical Devices Not on file [address] [place] [address] Care Teams Team MemberRelationshipSpecialtyStart DateEnd Maury Aponte MD [address] [place] [address] PCP - GeneralFamily Medicine06/30/20
[2025-08-27 12:25] VITALS: BP 125/52; PULSE 71; TEMP 36.4; O2SAT 94; BMI 29.5
--- NOTE | 2025-08-27 12:38 | ECG_ITS ---
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 Measurements Intervals Tibbie Rate: 68 P: 35 CA: 192 QRS: 15 QRSD: 112 T: 2 QT: 442 QTc: 459 Interpretive Statements 1100 Sinus rhythm 2320 Nonspecific intraventricular conduction delay [address] depression [address] & Twave abnormality 8304 Long QTc interval 9150 abnormal ECG Compared to ECG 11/15/2023 05:40:43 Intraventricular conduction delay now present ST (T wave) deviation now present Left ventricular hypertrophy no longer present Electronically Signed On 08-27-2025 19:11:35 EST by DEMETRIUS PELLETIER M.D.
[2025-08-27] MEDS: MORPHINE SULFATE 4 MG/ML VIAL IV (12:54)
[2025-08-27 12:56] LABS: Hematocrit 35.7 % (42.0-54.0); Hemoglobin 11.2 g/dL (14.0-18.0); Immature Granulocytes Abs Auto 0.08 10^3/uL (0.00-0.03); Immature Granulocytes Pct Auto 0.6 % (0.0-0.5); Lymphocytes Absolute Auto 1.2 10^3/uL (1.2-3.8); Mean Corpuscular HGB Conc 31.4 g/dL (29.9-35.2); Mean Corpuscular Hemoglobin 25.3 pg (25.9-34.0); Mean Corpuscular Volume 80.8 fL (80.0-94.0); Platelet Count 251 10^3/uL (150-450); Red Blood Count 4.42 10^6/uL (4.70-6.10); White Blood Count 13.7 10^3/uL (4.0-11.0)
[2025-08-27 13:04] LABS: Anion Gap 12.0; Blood Urea Nitrogen 40.0 mg/dL (7.0-18.0); Calcium 9.0 mg/dL (8.5-10.1); Carbon Dioxide 26.0 mmol/L (21.0-32.0); Chloride 104 mmol/L (98-107); Estimated GFR (African America 28 (>=60 mL/min/1.73m^2); Estimated GFR (Non-African Ame 23 (>=60 mL/min/1.73m^2); Glucose 187 mg/dL (74-106); Potassium 5.0 mmol/L (3.5-5.1); Sodium 137 mmol/L (136-145)
[2025-08-27] MEDS: 0.9 % SODIUM CHLORIDE 1,000 ML 125 ML IV (13:19)
--- NOTE | 2025-08-27 15:07 | PC.NURSE ---
pt remains resting comfortably. easily arousable, resps easy and regular. does not appear to be in any pain. VS WNL. son aware of pt's transfer status.
== END 2025-08-27 16:15 | disposition short-term general hospital (02) ==
PROVIDERS: Emergency Provider Emergency Medicine; PCP Nurse Practitioner Family
DX: S72.142A Displaced intertrochanteric fracture of left femur, initial encounter for closed fracture (principal); W01.0XXA Fall on same level from slipping, tripping and stumbling without subsequent striking against object, initial encounter
CPT/HCPCS: 36415; 73502; 80048; 85025; 93005; 96374; 96375; 99285; J2270; J2405